=== PATIENT | female | born 1980 | race Caucasian/White ===

== ENCOUNTER 2023-10-30 14:31 | Emergency (ER) | payer OTHER, SELFPAY ==
[2023-10-30 14:38] VITALS: BP 151/90; PULSE 100; RESP 20; TEMP 36.7; O2SAT 98; BMI 45.2
--- NOTE | 2023-10-30 15:04 | CT_ITS ---
The [address] [address] Patient Name: BRIE DUMONT MRN: [id number] date: 1980 Sex: F Assigned Patient Location: ER Current Patient Location: ER Accession/Order Number: [id number] Exam Date: 10/30/2023 15:25 Report Date: 10/30/2023 15:51 At the request of: HOLDEN NOVA Procedure: CT abdomen pelvis wo con CT abdomen and pelvis without contrast CLINICAL: left flank pain r/o stone , history of right oophorectomy and hysterectomy COMPARISON: None. TECHNIQUE: Computed tomography of the abdomen and pelvis was performed without intravenous contrast. Coronal and sagittal reformations were obtained. Dose reduction: mA and/or kV are adjusted by automated exposure control software based on patient size. FINDINGS: Soft tissue structures are suboptimally evaluated without intravenous contrast. Kidneys are normal in size without perinephric stranding or hydronephrosis. There is no renal or ureteral calculus on either side. Bladder is nondistended without bladder stone. Liver size is upper limits of normal at 15 cm craniocaudal in the midclavicular line. Liver morphology is normal with a background of severe fatty infiltration of the liver. Gallbladder surgically absent. Pancreas is normal. Spleen size is normal at 13 cm craniocaudal. Adrenal glands are normal. Small and large bowel loops are normal caliber. Small stool burden in the proximal colon with otherwise: Decompressed. No focal bowel inflammation. Appendix is not seen without findings for appendicitis. Abdominal aorta is normal. Uterus surgically absent. Cluster of cysts or a complex cyst in the left ovary measuring 2.4 x 2.2 cm. Right ovary not definitely seen] and with history of right oophorectomy. There are few shotty rebecca hepatis and portacaval lymph nodes measuring up to 1.1 cm in short axis (image 36 series 3). Otherwise no gross abdominal pelvic lymphadenopathy. Lung bases clear. Heart size within normal limits. Patient is morbidly obese, with nonspecific bronchial skin thickening across patient's pannus. Mild endplate degenerative spurs of the thoracolumbar spine. Tiny fat-containing umbilical hernia. CT/CT abdomen pelvis wo con IMPRESSION: 1. Normal noncontrast CT appearance of the kidneys without urinary calculus. No obstructive or inflammatory changes of the kidneys on either side. 2. Borderline hepatomegaly with diffuse fatty infiltration of the liver and changes of cholecystectomy. 3. Negative for bowel obstruction or focal bowel inflammation with small stool burden. 4. Few shotty upper abdominal lymph nodes, without gross abdominal or pelvic lymphadenopathy. 5. Morbidly obese patient with nonspecific broad skin thickening across patient's pannus that is probably from dependent edema. Cellulitis not excluded. Correlate with physical examination. 6. Hysterectomy and right oophorectomy, with a cluster of cysts versus a complex cyst in the left ovary at 2.4 cm. Additional incidental findings discussed above. Electronically authenticated by: DAMION MORGAN Date: 10/30/2023 15:51
--- NOTE | 2023-10-30 15:05 | ED.GENADUL1 ---
HPI - General Adult General Chief complaint: Abdominal Pain Stated complaint: KIDNEY STONES SYMPOMS PAIN ON LT SIDE Time Seen by Provider: 10/30/23 14:59 Source: patient Mode of arrival: walk-in Limitations: no limitations History of Present Illness HPI narrative: pt is a 43 yr female. c/o Left flank pain. Nausea and vomiting Patient reports at times the pain can be severe, she has a recurrent history of kidney stones but was recently assessed by her urologist last week when symptoms began. Patient reports having a bladder scan in the office with no report of stone. Patient states symptoms then went away but then aggressively returned today. Patient reports that she has always been able to pass her stones, but has had a history of bladder infections. Patient denies any chest pain or shortness of breath, she denies any measurable fever. She Has allergies to Ultram and Toradol. Denies any diarrhea or history of Crohn's or colitis or diverticulitis. Urology group is with the [facility], patient reports no recent CT scans. Onset (ago): hour(s) Location: Reports abdomen Radiation: Reports flank (left) Severity: moderate Quality: Reports stabbing, aching, sharp and constant Pain Consistency: Reports constant (currently) and colicky Relieving factors: Reports none Exacerbating factors: Reports none Associated symptoms: Reports nausea/vomiting Related Data Previous Rx's Medication Instructions Recorded dicyclomine 20 mg tablet 20 mg PO TID abdominal pain 2 days 10/30/23 #6 tabs ondansetron HCl 4 mg tablet 4 mg PO Q6H PRN nausea and 10/30/23 vomiting #12 tabs Allergies Allergy/AdvReac Type Severity Reaction Status Date / Time ketorolac [From Toradol] Allergy Anaphylaxis Verified 10/30/23 14:41 tramadol Allergy Anaphylaxis Verified 10/30/23 14:41 Review of Systems ROS Constitutional Denies: fever or chills Eyes Denies: change in vision Ears, nose, mouth, and throat Denies: throat pain or neck pain Cardiovascular Denies: chest pain or palpitations Respiratory Denies: shortness of breath or cough Gastrointestinal Reports: abdominal pain, nausea and vomiting Genitourinary Denies: painful urination, urinary frequency or urinary urgency Musculoskeletal Denies: back pain, neck pain or extremity pain Integumentary/Breast Denies: rash, itching, redness or skin pain Neurological Denies: headache, numbness in extremities or weakness in extremities Psychiatric Denies: anxiety Allergic/Immunologic Denies: hives PFSH PFSH Social History Smoking status: Former smoker Exam Narrative Exam Narrative: Nurses notes and vital signs reviewed and patient is not hypoxic. General: The patient appears well but uncomfortable holding left flank/ LLQ Skin: Warm, dry, no pallor noted. no zoster rash noted. Head: Normocephalic, atraumatic Neck: Supple, trachea mid-line, no tenderness, no lymphadenopathy Eye: Pupils are equal, round and reactive to light, EOMI Ears, Nose, Mouth, and Throat: TM are clear, normal light reflex, oral mucosa is moist, no posterior oropharynx erythema or hypertrophy, uvula is mid-line Cardiovascular: Regular Rate and Rhythm Respiratory: Patient is in no distress, no accessory muscle use, lungs are clear to auscultation, no wheezing, rales or rhonchi. Chest Wall: no tenderness Back: non-tender, no CVA tenderness Musculoskeletal: normal ROM, no tenderness, no swelling GI: Normal bowel sounds, + tenderness to palpation Left lower quadrant, no masses appreciated. No rebound, guarding, or rigidity noted. Neurological: A&O x4 Psychiatric: Cooperative Constitutional Vital Signs, click to edit/add: Last Vital Signs Temp 98.1 F 10/30/23 14:38 Pulse 100 H 10/30/23 14:38 Resp 20 10/30/23 14:38 BP 151/90 H 10/30/23 14:38 Pulse Ox 98 10/30/23 14:38 O2 Del Method Room Air 10/30/23 14:38 Course Vital Signs Vital signs: Vital Signs Temperature 98.1 F 10/30/23 14:38 Pulse Rate 100 H 10/30/23 14:38 Respiratory Rate 20 10/30/23 14:38 Blood Pressure 151/90 H 10/30/23 14:38 Pulse Oximetry 98 10/30/23 14:38 Oxygen Delivery Method Room Air 10/30/23 14:38 Temperature 98.1 F 10/30/23 14:38 Pulse Rate 100 H 10/30/23 14:38 Respiratory Rate 20 10/30/23 14:38 Blood Pressure 151/90 H 10/30/23 14:38 Pulse Oximetry 98 10/30/23 14:38 Oxygen Delivery Method Room Air 10/30/23 14:38 Medical Decision Making MDM Narrative Medical decision making narrative: Reviewed imaging on file. CT 11/2022, pt verbally reports no CT's at [facility], ( urologist in [facility]). pt seen last week with Neg in office Ultrasound and symptoms went away until there. Review: Reviewed laboratory studies, patient admits to taking Azo with her bladder symptoms after seeing urology, will await urine culture as she denies any urgency frequency or dysuria. Patient denies fever. We discussed her CT scan no evidence of ureterolithiasis or renal calculi, patient received 4 mg IV morphine and Zofran. Patient notes that she still has some discomfort in her left lower quadrant. We discussed Bentyl medication and Zofran for discharge, patient had ovarian cyst noted on CT scan. Patient with anemia, she denies blood per rectum, states she recently got started on iron supplementation for iron deficiency anemia but has not been taking it that long. We discussed the need to discuss her lab findings here with her family doctor to ensure ongoing follow-up. She appears nontoxic. can follow with her OBGYN for ovarian cyst. We discussed additional medication and after reviewing her OARRS Patient has multiple prescriptions from different providers with last being 10/25 from an ER. 2-to 8 tabs percocet at a time. We recommend she follow-up to her family doctor to discuss ongoing treatmentThe patient is to followup with primary care physician in next 2-3 days or to return to the emergency department should any of the signs or symptoms worsen or new symptoms develop. Patient had questions answered. The patient agrees with the following Diagnosis and Treatment plan and the patient will be discharged home.I do not feel pt needs narcotic medication at this time and continue her motrin. Lab Data Lab results reviewed: Yes I reviewed the patient's lab results Labs: Lab Results 10/30/23 10/30/23 10/30/23 Range/Units 14:45 14:56 15:01 WBC 6.5 (4.0-11.0) 10^3/uL RBC 4.38 (4.20-5.40) 10^6/uL Hgb 9.5 L (12.0-16.0) g/dL Hct 31.7 L (36.0-48.0) % MCV 72.4 L (81.0-99.0) fL MCH 21.7 L (26.7-34.0) pg MCHC 30.0 (29.9-35.2) g/dL RDW 17.2 H (11.0-15.0) % Plt Count 312 (150-450) 10^3/uL MPV 8.5 L (9.5-13.5) fL Neut % (Auto) 52.4 (43.0-75.0) % Lymph % (Auto) 36.4 (20.5-60.0) % [place] % (Auto) 8.6 (1.7-12.0) % Eos % (Auto) 1.5 (0.9-7.0) % Baso % (Auto) 0.8 (0.2-2.0) % Neut # (Auto) 3.4 (1.4-6.5) 10^3/uL Lymph # (Auto) 2.4 (1.2-3.8) 10^3/uL [place] # (Auto) 0.6 (0.3-0.8) 10^3/uL Eos # (Auto) 0.1 (0.0-0.7) 10^3/uL Baso # (Auto) 0.1 (0.0-0.1) 10^3/uL Abs Immat Gran (auto) 0.02 (0.00-0.03) 10^3/uL Imm/Tot Granulo (auto) 0.3 (0.0-0.5) % Sodium 139 (136-145) mmol/L Potassium 4.6 (3.5-5.1) mmol/L Chloride 103 (98-107) mmol/L Carbon Dioxide 28.8 (21.0-32.0) mmol/L Anion Gap 11.8 BUN 7.0 (7.0-18.0) mg/dL Creatinine 0.72 (0.55-1.02) mg/dL Est GFR ( Amer) >60 (>=60) Est GFR (Non-Af Amer) >60 (>=60) BUN/Creatinine Ratio 9.7 Glucose 113 H (74-106) mg/dL Calcium 9.0 (8.5-10.1) mg/dL Total Bilirubin 0.6 (0.2-1.0) mg/dL AST 27 (15-37) U/L ALT 37 (14-59) U/L Alkaline Phosphatase 76 (46-116) U/L Troponin I High Sens <4.0 L (4.0-51.3) pg/mL Total Protein 8.1 (6.4-8.2) g/dL Albumin 3.5 (3.4-5.0) g/dL Globulin 4.6 g/dL Albumin/Globulin Ratio 0.8 Lipase 46.0 (16.0-77.0) U/L Urine Color [place] A (YELLOW) Urine Clarity Clear (CLEAR) Urine pH Color interference A (5.0-9.0) Ur Specific [place] 1.010 (1.005-1.025) Urine Protein Color interference A (NEG/TRACE) mg/dL Urine Glucose (UA) Color interference A (NEGATIVE) mg/dL Urine Ketones Color interference A (NEGATIVE) mg/dL Urine Occult Blood Color interference A (NEGATIVE) Urine Nitrite Color interference A (NEGATIVE) Urine Bilirubin Color interference A (NEGATIVE) Urine Urobilinogen Color interference A (0.2-1.0) EU/dL Ur Leukocyte Esterase Color interference A (NEGATIVE) Urine RBC 10-20 A (0-2) #/HPF Urine WBC 5-10 A (NONE SEEN) #/HPF Ur Squamous Epith Cells Moderate A (NONE/RARE) #/LPF Urine Crystals None seen (None Seen) #/HPF Urine Bacteria Small A (NONE SEEN) #/HPF Urine Casts None seen (NONE SEEN) #/LPF Urine Mucus None seen (NONE SEEN) Ur Culture Indicated? Yes Urine HCG, Qual Negative (NEGATIVE) Imaging Data CT scan - abdomen: Attestation: I personally reviewed and interpreted this imaging study as follows: Radiologist's impression: ITS Impressions Abdomen/Pelvis CT 10/30/23 15:04 IMPRESSION: 1. Normal noncontrast CT appearance of the kidneys without urinary calculus. No obstructive or inflammatory changes of the kidneys on either side. 2. Borderline hepatomegaly with diffuse fatty infiltration of the liver and changes of cholecystectomy. 3. Negative for bowel obstruction or focal bowel inflammation with small stool burden. 4. Few shotty upper abdominal lymph nodes, without gross abdominal or pelvic lymphadenopathy. 5. Morbidly obese patient with nonspecific broad skin thickening across patient's pannus that is probably from dependent edema. Cellulitis not excluded. Correlate with physical examination. 6. Hysterectomy and right oophorectomy, with a cluster of cysts versus a complex cyst in the left ovary at 2.4 cm. Additional incidental findings discussed above. Electronically authenticated by: JOAOTOM EDDIE Date: 10/30/2023 15:51 Discharge Plan Discharge Chief Complaint: Abdominal Pain Clinical Impression: Acute abdominal pain in left flank, Ovarian cyst, Abdominal pain, Nausea Patient Disposition: Home, Self-Care Time of Disposition Decision: 16:21 Condition: Good Prescriptions / Home Meds: New ondansetron HCl 4 mg tablet 4 mg PO Q6H PRN (Reason: nausea and vomiting) Qty: 12 0RF dicyclomine 20 mg tablet 20 mg PO TID 2 Days Qty: 6 0RF Instructions: Abdominal Pain (ED) Referrals: Denny Connelly DO [Physician] - As soon as possible Chaitanya Rhodes MD [Physician] - As soon as possible Stand Alone Forms: Portal Instructions
[2023-10-30] MEDS: ONDANSETRON PF 4 MG/2 ML VIAL IV (15:06)
[2023-10-30 15:09] LABS: Clarity Urine CLEAR (CLEAR); Color Urine ORANGE (YELLOW)
[2023-10-30 15:10] LABS: Basophils Absolute Auto 0.1 10^3/uL (0.0-0.1); Basophils Percent Auto 0.8 % (0.2-2.0); Eosinophils Absolute Auto 0.1 10^3/uL (0.0-0.7); Eosinophils Percent Auto 1.5 % (0.9-7.0); Hematocrit 31.7 % (36.0-48.0); Hemoglobin 9.5 g/dL (12.0-16.0); Immature Granulocytes Abs Auto 0.02 10^3/uL (0.00-0.03); Immature Granulocytes Pct Auto 0.3 % (0.0-0.5); Lymphocytes Absolute Auto 2.4 10^3/uL (1.2-3.8); Lymphocytes Percent Auto 36.4 % (20.5-60.0); Mean Corpuscular Hemoglobin 21.7 pg (26.7-34.0); Mean Corpuscular Volume 72.4 fL (81.0-99.0); Mean Platelet Volume 8.5 fL (9.5-13.5); Monocytes Absolute Auto 0.6 10^3/uL (0.3-0.8); Monocytes Percent Auto 8.6 % (1.7-12.0); Neutrophils Absolute Auto 3.4 10^3/uL (1.4-6.5); Neutrophils Percent Auto 52.4 % (43.0-75.0); Platelet Count 312 10^3/uL (150-450); Red Blood Count 4.38 10^6/uL (4.20-5.40); Red Cell Distribution Width 17.2 % (11.0-15.0); White Blood Count 6.5 10^3/uL (4.0-11.0)
[2023-10-30 15:10] LABS: Bilirubin Urine COLOR INTERFERENCE (NEGATIVE); Blood Urine COLOR INTERFERENCE (NEGATIVE); Glucose Urine UA COLOR INTERFERENCE mg/dL (NEGATIVE); HCG Qualitative Urine* NEGATIVE (NEGATIVE); Ketones Urine COLOR INTERFERENCE mg/dL (NEGATIVE); Leukocyte Esterase Urine COLOR INTERFERENCE (NEGATIVE); Nitrite Urine COLOR INTERFERENCE (NEGATIVE); Protein Urine COLOR INTERFERENCE mg/dL (NEG/TRACE); Urine Microscopic Indicated YES; Urobilinogen Urine COLOR INTERFERENCE EU/dL (0.2-1.0); pH Urine COLOR INTERFERENCE (5.0-9.0)
[2023-10-30] MEDS: MORPHINE SULFATE 2 MG/ML SYRINGE 4 MG IV (15:12)
[2023-10-30] MEDS: 0.9 % SODIUM CHLORIDE 1,000 ML 999 ML IV (15:13)
[2023-10-30 15:16] LABS: Bacteria Urine SMALL #/HPF (NONE SEEN); Mucus Urine NONE SEEN (NONE SEEN)
[2023-10-30 15:17] LABS: Cast Seen? NONE SEEN #/LPF (NONE SEEN); Crystals Seen? None Seen #/HPF (None Seen); Squamous Epithelial Cell Urine MODERATE #/LPF (NONE/RARE); Urine Culture Indicated YES
[2023-10-30 15:27] LABS: Alanine Aminotransferase 37 U/L (14-59); Albumin Globulin Ratio 0.8; Albumin Level 3.5 g/dL (3.4-5.0); Alkaline Phosphatase 76 U/L (46-116); Anion Gap 11.8; Aspartate Amino Transferase 27 U/L (15-37); BUN Creatinine Ratio 9.7; Bilirubin Total 0.6 mg/dL (0.2-1.0); Carbon Dioxide 28.8 mmol/L (21.0-32.0); Chloride 103 mmol/L (98-107); Estimated GFR (African America >60 (>=60); Estimated GFR (Non-African Ame >60 (>=60); Globulin 4.6 g/dL; Glucose 113 mg/dL (74-106); Potassium 4.6 mmol/L (3.5-5.1); Sodium 139 mmol/L (136-145); Total Protein 8.1 g/dL (6.4-8.2); Troponin I High Sensitivity <4.0 pg/mL (4.0-51.3)
--- NOTE | 2023-10-30 16:42 | PC.NURSE ---
Pt took out her own iv at this time -- does not appear to be bleeding.
== END 2023-10-30 16:52 | disposition home or self-care (01) ==
PROVIDERS: Personal Emergency Response Attendant; Emergency Provider Emergency Medicine Emergency Medical Services; PCP Nurse Practitioner
DX: R10.9 Unspecified abdominal pain (principal); R11.0 Nausea; N83.202 Unspecified ovarian cyst, left side; Z87.442 Personal history of urinary calculi; Z87.891 Personal history of nicotine dependence
CPT/HCPCS: 36415; 74176; 80053; 81001; 83690; 84484; 84703; 85025; 87086; 96361; 96374; 96375; 99285

== ENCOUNTER 2024-03-12 17:16 | Emergency (ER) | payer OTHER, SELFPAY ==
[2024-03-12 17:20] VITALS: BP 143/76; PULSE 94; TEMP 36.6; O2SAT 99; BMI 45.2
--- NOTE | 2024-03-12 17:44 | CT_ITS ---
[address] [address] Patient Name: BRIE DUMONT MRN: [facility]:[id number] date: 1980 Sex: F Assigned Patient Location: ER Current Patient Location: ER Accession/Order Number: [id number] Exam Date: 03/12/2024 18:10 Report Date: 03/12/2024 19:33 At the request of: ASYA BREAUX Procedure: CT abdomen pelvis wo con EXAM: CT abdomen pelvis wo con. HISTORY: Left flank pain. COMPARISON: CT 10/30/2023. TECHNIQUE: Multiple axial CT images of the abdomen and pelvis were obtained without IV contrast. 2D coronal and sagittal MIP reformations were submitted for review. Dose reduction techniques were achieved by using automated exposure control and/or adjustment of mA and/or kV according to patient size and/or use of iterative reconstruction technique. FINDINGS: LUNG BASES: Visualized lung bases appear clear. No pleural effusion is identified. Decreased density of blood pool relative to the myocardium suggesting anemia. LYMPH NODES: Similar prominent lymph nodes in the portacaval and rebecca hepatis regions. ABDOMINAL AORTA: No aortic aneurysm identified. LIVER: Liver contour appears smooth. Mild decreased density of the liver parenchyma suggests fatty infiltration. BILIARY TREE AND GALLBLADDER: No intrahepatic or extrahepatic bile duct dilatation. Prior cholecystectomy. PANCREAS: Normal in size without masses or ductal dilatation. No peripancreatic inflammatory changes. SPLEEN: Normal in size without focal lesions. ADRENAL GLANDS: Normal bilaterally, without nodules. KIDNEYS/URINARY BLADDER: The kidneys appear symmetric in size. No parenchymal lesions identified. No KUB stones or hydronephrosis identified. The urinary bladder appears unremarkable. GASTROINTESTINAL TRACT: No bowel obstruction is identified. The stomach and duodenum appear unremarkable. Appendix is not seen with certainty. No pericecal inflammation. PERITONEAL CAVITY AND SURFACES: No free fluid. No free intraperitoneal air. REPRODUCTIVE ORGANS: Prior hysterectomy. ABDOMINAL WALL: Small noninflamed fat-containing umbilical hernia. Mild inflammation in the subcutaneous tissues along the pannus with skin thickening. OSSEOUS STRUCTURES: No aggressive appearing osseous lesions. No compression fracture is identified. Mild degenerative disc disease. Mild bilateral hip joint osteoarthritis. Mild to moderate bilateral SI joint osteoarthritis. CT/CT abdomen pelvis wo con IMPRESSION: 1. No KUB stones or hydronephrosis. 2. Fatty infiltration of the liver. 3. Mild inflammation along the pannus may be related to cellulitis. Recommend clinical correlation. 4. Prior cholecystectomy and hysterectomy. Electronically authenticated by: HOLDEN JAMIL Date: 03/12/2024 19:33
--- NOTE | 2024-03-12 17:56 | ED.GENADUL1 ---
HPI HPI - General Adult General Chief complaint: Abdominal Pain Stated complaint: BLOOD IN URINE, NAUSEA.VOMITING, FEVER Time Seen by Provider: 03/12/24 17:17 Source: patient Mode of arrival: walk-in Limitations: no limitations History of Present Illness HPI narrative: 43-year-old female to the emergency department with chief complaint of left-sided flank pain. Symptoms began overnight. Has a history of kidney stones with similar symptoms. Reports nausea without vomiting. Denies any fever, sweats, chills. She does have hematuria. Related Data Previous Rx's ?Medication ?Instructions ?Recorded dicyclomine 20 mg tablet 20 mg PO TID abdominal pain 2 days 10/30/23 #6 tabs ondansetron HCl 4 mg tablet 4 mg PO Q6H PRN nausea and 10/30/23 vomiting #12 tabs Allergies Allergy/AdvReac Type Severity Reaction Status Date / Time ketorolac [From Toradol] Allergy Anaphylaxis Verified 03/12/24 17:20 tramadol Allergy Anaphylaxis Verified 03/12/24 17:20 Opioid HPI Opioid Management Most Recent Opioid Data: Last Pain Scale 8 03/12/24 18:45 Last MAR Pain Assessment 03/12/24 18:00 Review of Systems ROS Status of ROS 10 or more systems reviewed and unremarkable except as noted in history and below PFSH PFS Social History Smoking status: Former smoker Exam Narrative Exam Narrative: VITALS: I have reviewed the triage vital signs. GENERAL: Well developed, well appearing adult in no acute distress. NEURO: Alert and oriented. Moves all extremities. Face is symmetric and expressive. EYES: PERRL. No scleral icterus or conjunctival injection. No discharge. HENT: Normocephalic, atraumatic. Hearing is grossly intact. Nares grossly patent and without discharge. Mucous membranes moist. NECK: No JVD. Patient moves neck without restriction. CARDIO: Rhythm regular. Normal rate. No murmur, rub, or gallop. Pulses equal bilaterally in the upper and lower extremity. No lower extremity edema. PULM: Lungs clear to auscultation in all miranda. No wheezes, rales, or rhonchi. No conversational dyspnea. No splinting, stridor, or accessory muscle use. GI/: Abdomen is soft and non-tender. Normoactive bowel sounds. EXTREMITIES: Symmetric muscle bulk. No joint swelling. No clubbing, cyanosis, or deformity. SKIN: Warm and dry. Normal turgor. No rash or lesions appreciated. PSYCH: Mood, affect, and interaction is appropriate to the setting. Constitutional Vital Signs, click to edit/add: Last Vital Signs Temp 97.8 F 03/12/24 17:20 Pulse 91 H 03/12/24 18:44 Resp 16 03/12/24 18:44 BP 162/73 H 03/12/24 18:44 Pulse Ox 98 03/12/24 18:44 O2 Del Method Room Air 03/12/24 18:44 Course Vital Signs Vital signs: Vital Signs Temperature 97.8 F 03/12/24 17:20 Pulse Rate 94 H 03/12/24 17:20 Respiratory Rate 16 03/12/24 17:20 Blood Pressure 143/76 H 03/12/24 17:20 Pulse Oximetry 99 03/12/24 17:20 Oxygen Delivery Method Room Air 03/12/24 17:20 Temperature 97.8 F 03/12/24 17:20 Pulse Rate 91 H 03/12/24 18:44 Respiratory Rate 16 03/12/24 18:44 Blood Pressure 162/73 H 03/12/24 18:44 Pulse Oximetry 98 03/12/24 18:44 Oxygen Delivery Method Room Air 03/12/24 18:44 Medical Decision Making MDM Narrative Medical decision making narrative: 43-year-old female to the emergency department chief complaint of left flank pain. Vital stable, the patient is afebrile. Workup is initiated, suspect kidney stone. CT scan and labs are ordered. Urinalysis ordered. Morphine and Zofran for symptoms. Care was signed out to Dr. [place] with results of CT and disposition pending. Medical Records Medical records reviewed: Yes I reviewed the patient's medical records Lab Data Lab results reviewed: Yes I reviewed the patient's lab results Labs: Lab Results 03/12/24 03/12/24 Range/Units 17:35 17:38 WBC 5.2 (4.0-11.0) 10^3/uL RBC 4.13 L (4.20-5.40) 10^6/uL Hgb 8.7 L (12.0-16.0) g/dL Hct 29.8 L (36.0-48.0) % MCV 72.2 L (81.0-99.0) fL MCH 21.1 L (26.7-34.0) pg MCHC 29.2 L (29.9-35.2) g/dL RDW 17.4 H (11.0-15.0) % Plt Count 287 (150-450) 10^3/uL MPV 8.4 L (9.5-13.5) fL Neut % (Auto) 54.7 (43.0-75.0) % Lymph % (Auto) 35.5 (20.5-60.0) % [place] % (Auto) 7.3 (1.7-12.0) % Eos % (Auto) 1.5 (0.9-7.0) % Baso % (Auto) 0.6 (0.2-2.0) % Neut # (Auto) 2.8 (1.4-6.5) 10^3/uL Lymph # (Auto) 1.8 (1.2-3.8) 10^3/uL [place] # (Auto) 0.4 (0.3-0.8) 10^3/uL Eos # (Auto) 0.1 (0.0-0.7) 10^3/uL Baso # (Auto) 0.0 (0.0-0.1) 10^3/uL Abs Immat Gran (auto) 0.02 (0.00-0.03) 10^3/uL Imm/Tot Granulo (auto) 0.4 (0.0-0.5) % Urine Color Lt. yellow (YELLOW) Urine Clarity Clear (CLEAR) Urine pH 7.0 (5.0-9.0) Ur Specific [place] 1.010 (1.005-1.025) Urine Protein Negative (NEG/TRACE) mg/dL Urine Glucose (UA) Negative (NEGATIVE) mg/dL Urine Ketones Negative (NEGATIVE) mg/dL Urine Occult Blood Large A (NEGATIVE) Urine Nitrite Negative (NEGATIVE) Urine Bilirubin Negative (NEGATIVE) Urine Urobilinogen 0.2 (0.2-1.0) EU/dL Ur Leukocyte Esterase Negative (NEGATIVE) Urine RBC 75-100 A (0-2) #/HPF Urine WBC 0-2 A (NONE SEEN) #/HPF Ur Squamous Epith Cells Few A (NONE/RARE) #/LPF Urine Crystals None seen (None Seen) #/HPF Urine Bacteria Trace A (NONE SEEN) #/HPF Urine Casts None seen (NONE SEEN) #/LPF Urine Mucus None seen (NONE SEEN) Ur Culture Indicated? No Discharge Plan Discharge Chief Complaint: Abdominal Pain Clinical Impression: Acute flank pain Patient Disposition: Still a Patient Prescriptions / Home Meds: No Action ondansetron HCl 4 mg tablet 4 mg PO Q6H PRN (Reason: nausea and vomiting) Qty: 12 0RF dicyclomine 20 mg tablet 20 mg PO TID 2 Days Qty: 6 0RF Print Language: Slovak Referrals: Julita Saunders NP [Primary Care Provider] - 1 week
[2024-03-12] MEDS: MORPHINE SULFATE 4 MG/ML VIAL IV (18:00)
[2024-03-12] MEDS: ONDANSETRON PF 4 MG/2 ML VIAL IV (18:00)
[2024-03-12 18:09] LABS: Basophils Percent Auto 0.6 % (0.2-2.0); Eosinophils Absolute Auto 0.1 10^3/uL (0.0-0.7); Eosinophils Percent Auto 1.5 % (0.9-7.0); Hematocrit 29.8 % (36.0-48.0); Hemoglobin 8.7 g/dL (12.0-16.0); Immature Granulocytes Abs Auto 0.02 10^3/uL (0.00-0.03); Immature Granulocytes Pct Auto 0.4 % (0.0-0.5); Lymphocytes Absolute Auto 1.8 10^3/uL (1.2-3.8); Lymphocytes Percent Auto 35.5 % (20.5-60.0); Mean Corpuscular HGB Conc 29.2 g/dL (29.9-35.2); Mean Corpuscular Hemoglobin 21.1 pg (26.7-34.0); Mean Corpuscular Volume 72.2 fL (81.0-99.0); Mean Platelet Volume 8.4 fL (9.5-13.5); Monocytes Absolute Auto 0.4 10^3/uL (0.3-0.8); Monocytes Percent Auto 7.3 % (1.7-12.0); Neutrophils Absolute Auto 2.8 10^3/uL (1.4-6.5); Neutrophils Percent Auto 54.7 % (43.0-75.0); Platelet Count 287 10^3/uL (150-450); Red Blood Count 4.13 10^6/uL (4.20-5.40); Red Cell Distribution Width 17.4 % (11.0-15.0); White Blood Count 5.2 10^3/uL (4.0-11.0)
[2024-03-12 18:11] LABS: Bilirubin Urine NEGATIVE (NEGATIVE); Blood Urine LARGE (NEGATIVE); Clarity Urine CLEAR (CLEAR); Color Urine LT. YELLOW (YELLOW); Glucose Urine UA NEGATIVE (NEGATIVE); Ketones Urine NEGATIVE (NEGATIVE); Leukocyte Esterase Urine NEGATIVE (NEGATIVE); Nitrite Urine NEGATIVE (NEGATIVE); Protein Urine NEGATIVE (NEG/TRACE); Urobilinogen Urine 0.2 EU/dL (0.2-1.0)
[2024-03-12 18:30] LABS: Urine Microscopic Indicated YES; WBC Urine 0-2 #/HPF (NONE SEEN)
[2024-03-12 18:31] LABS: RBC Urine 75-100 #/HPF (0-2)
[2024-03-12 18:32] LABS: Bacteria Urine TRACE #/HPF (NONE SEEN); Cast Seen? NONE SEEN #/LPF (NONE SEEN); Crystals Seen? None Seen #/HPF (None Seen); Mucus Urine NONE SEEN (NONE SEEN); Squamous Epithelial Cell Urine FEW #/LPF (NONE/RARE)
[2024-03-12 18:33] LABS: Urine Culture Indicated NO
[2024-03-12 18:43] LABS: Anion Gap 11.9; BUN Creatinine Ratio 7.7; Calcium 8.9 mg/dL (8.5-10.1); Carbon Dioxide 29.2 mmol/L (21.0-32.0); Chloride 103 mmol/L (98-107); Estimated GFR (African America >60 (>=60); Estimated GFR (Non-African Ame >60 (>=60); Glucose 119 mg/dL (74-106); Potassium 4.1 mmol/L (3.5-5.1); Sodium 140 mmol/L (136-145)
[2024-03-12 18:44] VITALS: BP 162/73; PULSE 91; O2SAT 98
--- NOTE | 2024-03-12 19:44 | ED.ABDPAIN1 ---
HPI - Abdominal Pain General Chief Complaint: Abdominal Pain Stated Complaint: BLOOD IN URINE, NAUSEA.VOMITING, FEVER Time Seen by Provider: 03/12/24 17:17 Source: patient Mode of arrival: walk-in Limitations: no limitations History of Present Illness HPI narrative: This 43-year-old female with a history of kidney stones was signed out to me at shift change pending CT scan of the abdomen pelvis. Patient was seen and examined. She presents for evaluation of left flank pain with nausea and vomiting. She states the pain started last night. She has a history of kidney stones and follows up with a urologist at [facility]. She states she went to the bathroom and urinated claudia blood. She denies any dysuria with it. She was given morphine and Zofran in emergency department but denied she had any relief from that. I reviewed her labs. She has a normal white count. Her hemoglobin is mildly low at 8.7, electrolytes are normal. Urine is negative for infection but positive for 75-100 red blood cells per high-power field. CT scan of the abdomen pelvis does not show any kidney stone hydronephrosis or other abnormal findings. It did note there is possible induration of her abdominal wall but she denies this is the case. She will be remedicated with a dose of 0.5 mg of IV Dilaudid and given oral Keflex. She will be discharged home with 2 Percocet to use as needed overnight and a prescription for Keflex, Zofran and [place]. She was encouraged to drink plenty of fluids, return the emergency department as needed for ongoing or worsening symptoms and follow-up with her urologist as needed. Related Data Previous Rx's ?Medication ?Instructions ?Recorded dicyclomine 20 mg tablet 20 mg PO TID abdominal pain 2 days 10/30/23 #6 tabs ondansetron HCl 4 mg tablet 4 mg PO Q6H PRN nausea and 10/30/23 vomiting #12 tabs Allergies Allergy/AdvReac Type Severity Reaction Status Date / Time ketorolac [From Toradol] Allergy Anaphylaxis Verified 03/12/24 17:20 tramadol Allergy Anaphylaxis Verified 03/12/24 17:20 PFSH PFSH Social History Smoking status: Former smoker Exam Constitutional Vital Signs, click to edit/add: Last Vital Signs Temp 97.8 F 03/12/24 17:20 Pulse 91 H 03/12/24 18:44 Resp 16 03/12/24 18:44 BP 162/73 H 03/12/24 18:44 Pulse Ox 98 03/12/24 18:44 O2 Del Method Room Air 03/12/24 18:44 Course Vital Signs Vital signs: Vital Signs Temperature 97.8 F 03/12/24 17:20 Pulse Rate 94 H 03/12/24 17:20 Respiratory Rate 16 03/12/24 17:20 Blood Pressure 143/76 H 03/12/24 17:20 Pulse Oximetry 99 03/12/24 17:20 Oxygen Delivery Method Room Air 03/12/24 17:20 Temperature 97.8 F 03/12/24 17:20 Pulse Rate 91 H 03/12/24 18:44 Respiratory Rate 16 03/12/24 18:44 Blood Pressure 162/73 H 03/12/24 18:44 Pulse Oximetry 98 03/12/24 18:44 Oxygen Delivery Method Room Air 03/12/24 18:44 MDM - Abdominal Pain Lab Data Labs: Lab Results 03/12/24 03/12/24 Range/Units 17:35 17:38 WBC 5.2 (4.0-11.0) 10^3/uL RBC 4.13 L (4.20-5.40) 10^6/uL Hgb 8.7 L (12.0-16.0) g/dL Hct 29.8 L (36.0-48.0) % MCV 72.2 L (81.0-99.0) fL MCH 21.1 L (26.7-34.0) pg MCHC 29.2 L (29.9-35.2) g/dL RDW 17.4 H (11.0-15.0) % Plt Count 287 (150-450) 10^3/uL MPV 8.4 L (9.5-13.5) fL Neut % (Auto) 54.7 (43.0-75.0) % Lymph % (Auto) 35.5 (20.5-60.0) % [place] % (Auto) 7.3 (1.7-12.0) % Eos % (Auto) 1.5 (0.9-7.0) % Baso % (Auto) 0.6 (0.2-2.0) % Neut # (Auto) 2.8 (1.4-6.5) 10^3/uL Lymph # (Auto) 1.8 (1.2-3.8) 10^3/uL [place] # (Auto) 0.4 (0.3-0.8) 10^3/uL Eos # (Auto) 0.1 (0.0-0.7) 10^3/uL Baso # (Auto) 0.0 (0.0-0.1) 10^3/uL Abs Immat Gran (auto) 0.02 (0.00-0.03) 10^3/uL Imm/Tot Granulo (auto) 0.4 (0.0-0.5) % Sodium 140 (136-145) mmol/L Potassium 4.1 (3.5-5.1) mmol/L Chloride 103 (98-107) mmol/L Carbon Dioxide 29.2 (21.0-32.0) mmol/L Anion Gap 11.9 BUN 6.0 L (7.0-18.0) mg/dL Creatinine 0.78 (0.55-1.02) mg/dL Est GFR ( Amer) >60 (>=60) Est GFR (Non-Af Amer) >60 (>=60) BUN/Creatinine Ratio 7.7 Glucose 119 H (74-106) mg/dL Calcium 8.9 (8.5-10.1) mg/dL Urine Color Lt. yellow (YELLOW) Urine Clarity Clear (CLEAR) Urine pH 7.0 (5.0-9.0) Ur Specific [place] 1.010 (1.005-1.025) Urine Protein Negative (NEG/TRACE) mg/dL Urine Glucose (UA) Negative (NEGATIVE) mg/dL Urine Ketones Negative (NEGATIVE) mg/dL Urine Occult Blood Large A (NEGATIVE) Urine Nitrite Negative (NEGATIVE) Urine Bilirubin Negative (NEGATIVE) Urine Urobilinogen 0.2 (0.2-1.0) EU/dL Ur Leukocyte Esterase Negative (NEGATIVE) Urine RBC 75-100 A (0-2) #/HPF Urine WBC 0-2 A (NONE SEEN) #/HPF Ur Squamous Epith Cells Few A (NONE/RARE) #/LPF Urine Crystals None seen (None Seen) #/HPF Urine Bacteria Trace A (NONE SEEN) #/HPF Urine Casts None seen (NONE SEEN) #/LPF Urine Mucus None seen (NONE SEEN) Ur Culture Indicated? No Discharge Plan Discharge Stand Alone Forms: Portal Instructions Chief Complaint: Abdominal Pain Clinical Impression: Acute flank pain, Hematuria Patient Disposition: Home, Self-Care Time of Disposition Decision: 19:43 Condition: Good Prescriptions / Home Meds: No Action ondansetron HCl 4 mg tablet 4 mg PO Q6H PRN (Reason: nausea and vomiting) Qty: 12 0RF dicyclomine 20 mg tablet 20 mg PO TID 2 Days Qty: 6 0RF Print Language: Montenegrin Instructions: Kidney Stones (ED) Referrals: Julita Saunders COPY HOLDER [Primary Care Provider] - 1 week
[2024-03-12] MEDS: ONDANSETRON 4 MG RAPDIS TABLET SL (19:54)
[2024-03-12] MEDS: CEPHALEXIN 500 MG CAPSULE PO (19:55)
[2024-03-12] MEDS: HYDROMORPHONE HCL 0.5 MG/0.5 ML SYRINGE IV (19:55)
[2024-03-12] MEDS: OXYCODONE HCL/ACETAMINOPHEN 5MG/325MG 2 TAB PO (19:57)
[2024-03-12 20:05] VITALS: BP 145/69; PULSE 96; O2SAT 99
--- NOTE | 2024-03-13 14:01 | PC.NURSE ---
03/13/24 [facility] in [place] called concerned about pt filling narcotics at multiple locations, spoke with MARLO De Santiago here when pt was here. ok to cancel prescription at this time, updated pharmacist as ordered by PA. Mishel Cruz RN
== END 2024-03-12 20:06 | disposition home or self-care (01) ==
PROVIDERS: Student in an Organized Health Care Education/Training Program; Emergency Provider Emergency Medicine; PCP Nurse Practitioner
DX: R10.9 Unspecified abdominal pain (principal); Z87.442 Personal history of urinary calculi; Z87.891 Personal history of nicotine dependence
CPT/HCPCS: 36415; 74176; 80048; 81001; 84703; 85025; 96374; 96375; 99285; J1170; J2270; J2405; Q0162

== ENCOUNTER 2024-04-08 13:06 | Emergency (ER) | payer OTHER, SELFPAY ==
[2024-04-08 13:16] VITALS: BP 155/86; PULSE 97; TEMP 37.2; O2SAT 99; BMI 45.2
--- NOTE | 2024-04-08 13:40 | CT_ITS ---
[place] [id number] Patient Name: BRIE DUMONT MRN: [id number] date: 1980 Sex: F Assigned Patient Location: ER Current Patient Location: ER Accession/Order Number: [id number] Exam Date: 04/08/2024 14:35 Report Date: 04/08/2024 15:43 At the request of: POONAM MORRISON Procedure: CT abdomen pelvis wo con EXAMINATION: CT abdomen pelvis wo con, 04/08/2024 2:35 PM EDT HISTORY: left flank pain, r/o stone COMPARISON: 03/12/2024 TECHNIQUE: CT scan of the abdomen and pelvis was performed without IV contrast. CT dose reduction technique was used, including Automated Exposure Control. FINDINGS: LOWER CHEST: The visualized lungs are clear. LIVER: There is hepatomegaly and diffuse hepatic steatosis. GALLBLADDER AND BILIARY SYSTEM: Status post cholecystectomy. No intra or extrahepatic biliary ductal dilatation. SPLEEN: The spleen is enlarged measuring 13.0 cm in craniocaudal dimension. PANCREAS: Unremarkable. ADRENAL GLANDS: Unremarkable. KIDNEYS AND URETERS: No nephrolithiasis or hydronephrosis. No ureteral calculus. BLADDER: Under distended. GASTROINTESTINAL TRACT: No evidence of bowel obstruction or colitis. The appendix is not clearly identified. VASCULATURE: The abdominal aorta is normal in caliber. RETROPERITONEUM: No lymphadenopathy. PERITONEUM/MESENTERY: No abdominal ascites. No free air. PELVIS: No pelvic ascites or lymphadenopathy. BODY WALL: Small fat-containing umbilical hernia. BONES: Degenerative changes of the sacroiliac joints bilaterally. CT/CT abdomen pelvis wo con IMPRESSION: 1. No nephrolithiasis or hydronephrosis. 2. Hepatomegaly and diffuse hepatic steatosis. 3. Splenomegaly. Electronically authenticated by: MONTSE PEREZ Date: 04/08/2024 15:43
--- NOTE | 2024-04-08 13:40 | ED.FEMALEGU1 ---
HPI - Female Genitourinary General Chief complaint: Urogenital-Female Stated complaint: PEEING BLOOD Time Seen by Provider: 04/08/24 13:21 Source: patient Mode of arrival: walk-in Limitations: no limitations History of Present Illness HPI Narrative: 43-year-old female presents to the emergency department for left flank pain and hematuria. She saw her urologist last week and she was told she was passing some punctate stones. She was feeling better until yesterday when she started having some more pain and was urinating blood. The pain is only on the left side and her back. No right-sided pain. She has had a hysterectomy. Related Data Home Medications ?Medication ?Instructions ?Recorded ?Confirmed ciprofloxacin HCl 500 mg tablet 500 mg PO Q12H 04/08/24 04/08/24 lamotrigine 100 mg tablet 100 mg PO QDAY 04/08/24 04/08/24 lorazepam 1 mg tablet 1 mg PO Q8H 04/08/24 04/08/24 metoprolol succinate 50 mg 50 mg PO Q12H 04/08/24 04/08/24 tablet,extended release 24 hr omeprazole 40 mg capsule,delayed 40 mg PO .qhs 04/08/24 04/08/24 release oxycodone-acetaminophen 5 mg-325 1 tab PO Q6H PRN pain 04/08/24 04/08/24 mg tablet Previous Rx's ?Medication ?Instructions ?Recorded dicyclomine 20 mg tablet 20 mg PO TID abdominal pain 2 days 10/30/23 #6 tabs ondansetron HCl 4 mg tablet 4 mg PO Q6H PRN nausea and 10/30/23 vomiting #12 tabs Allergies Allergy/AdvReac Type Severity Reaction Status Date / Time ketorolac [From Toradol] Allergy Anaphylaxis Verified 04/08/24 13:16 tramadol Allergy Anaphylaxis Verified 04/08/24 13:16 Review of Systems ROS Narrative A ten point review of systems is negative except as noted above. PFSH PFSH Social History Smoking status: Former smoker Exam Narrative Exam Narrative: Nurses note and vital signs reviewed and patient is not hypoxic. General: The patient appears uncomfortable and is sitting upright on the cart. Skin: Warm, dry, no pallor noted. There is no rash noted. Head: Normocephalic, atraumatic Eye: Normal conjunctiva, no drainage Ears, Nose, Mouth, and Throat: oral mucosa is moist. Nares patent. Cardiovascular: Regular Rate and Rhythm Respiratory: Patient is in no distress, no accessory muscle use, lungs are clear to auscultation, no wheezing, rales or rhonchi Back: non-tender, no bruise or rash on her back GI: Soft and nontender Musculoskeletal: The patient has no evidence of calf tenderness, no pitting edema, symmetrical pulses noted bilaterally Neurological: A&O, normal speech Psychiatric: Cooperative Constitutional Vital Signs, click to edit/add: Last Vital Signs Temp 98.9 F 04/08/24 13:16 Pulse 97 H 04/08/24 13:16 Resp 16 04/08/24 13:16 BP 155/86 H 04/08/24 13:16 Pulse Ox 99 04/08/24 13:16 O2 Del Method Room Air 04/08/24 13:16 Course Vital Signs Vital signs: Vital Signs Temperature 98.9 F 04/08/24 13:16 Pulse Rate 97 H 04/08/24 13:16 Respiratory Rate 16 04/08/24 13:16 Blood Pressure 155/86 H 04/08/24 13:16 Pulse Oximetry 99 04/08/24 13:16 Oxygen Delivery Method Room Air 04/08/24 13:16 Temperature 98.9 F 04/08/24 13:16 Pulse Rate 97 H 04/08/24 13:16 Respiratory Rate 16 04/08/24 13:16 Blood Pressure 155/86 H 04/08/24 13:16 Pulse Oximetry 99 04/08/24 13:16 Oxygen Delivery Method Room Air 04/08/24 13:16 MDM - Female Genitourinary MDM Narrative Medical decision making narrative: CT is negative, no evidence of stones. She does have hematuria and symptoms consistent with renal colic. She has oxycodone at home and she was given morphine here and she will follow-up with her urologist if symptoms do not resolve. Treatment diagnosis and follow-up were discussed with the patient. Differential Diagnosis Differential diagnosis: Likely urinary tract infection and other (Kidney stone, renal colic) Lab Data Attestation: I reviewed the patient's lab results. Labs: Lab Results 04/08/24 04/08/24 Range/Units 13:35 14:24 WBC 5.7 (4.0-11.0) 10^3/uL RBC 4.18 L (4.20-5.40) 10^6/uL Hgb 8.6 L (12.0-16.0) g/dL Hct 29.6 L (36.0-48.0) % MCV 70.8 L (81.0-99.0) fL MCH 20.6 L (26.7-34.0) pg MCHC 29.1 L (29.9-35.2) g/dL RDW 17.2 H (11.0-15.0) % Plt Count 271 (150-450) 10^3/uL MPV 8.6 L (9.5-13.5) fL Neut % (Auto) 58.1 (43.0-75.0) % Lymph % (Auto) 31.6 (20.5-60.0) % [place] % (Auto) 7.5 (1.7-12.0) % Eos % (Auto) 1.4 (0.9-7.0) % Baso % (Auto) 0.9 (0.2-2.0) % Neut # (Auto) 3.3 (1.4-6.5) 10^3/uL Lymph # (Auto) 1.8 (1.2-3.8) 10^3/uL [place] # (Auto) 0.4 (0.3-0.8) 10^3/uL Eos # (Auto) 0.1 (0.0-0.7) 10^3/uL Baso # (Auto) 0.1 (0.0-0.1) 10^3/uL Abs Immat Gran (auto) 0.03 (0.00-0.03) 10^3/uL Imm/Tot Granulo (auto) 0.5 (0.0-0.5) % Sodium 139 (136-145) mmol/L Potassium 4.3 (3.5-5.1) mmol/L Chloride 102 (98-107) mmol/L Carbon Dioxide 27.1 (21.0-32.0) mmol/L Anion Gap 14.2 BUN 7.0 (7.0-18.0) mg/dL Creatinine 0.76 (0.55-1.02) mg/dL Est GFR ( Amer) >60 (>=60) Est GFR (Non-Af Amer) >60 (>=60) BUN/Creatinine Ratio 9.2 Glucose 107 H (74-106) mg/dL Calcium 9.0 (8.5-10.1) mg/dL Urine Color Red A (YELLOW) Urine Clarity Sl cloudy (CLEAR) Urine pH 6.0 (5.0-9.0) Ur Specific [place] 1.015 (1.005-1.025) Urine Protein Trace (NEG/TRACE) mg/dL Urine Glucose (UA) Negative (NEGATIVE) mg/dL Urine Ketones Negative (NEGATIVE) mg/dL Urine Occult Blood Large A (NEGATIVE) Urine Nitrite Negative (NEGATIVE) Urine Bilirubin Negative (NEGATIVE) Urine Urobilinogen 0.2 (0.2-1.0) EU/dL Ur Leukocyte Esterase Negative (NEGATIVE) Urine RBC >100 A (0-2) #/HPF Urine WBC 0-2 A (NONE SEEN) #/HPF Ur Squamous Epith Cells Few A (NONE/RARE) #/LPF Urine Crystals None seen (None Seen) #/HPF Urine Bacteria Trace A (NONE SEEN) #/HPF Urine Casts None seen (NONE SEEN) #/LPF Urine Mucus None seen (NONE SEEN) Imaging Data CT scan - abdomen: Radiologist's impression: ITS Impressions Abdomen/Pelvis CT 04/08/24 13:40 IMPRESSION: 1. No nephrolithiasis or hydronephrosis. 2. Hepatomegaly and diffuse hepatic steatosis. 3. Splenomegaly. Electronically authenticated by: MONTSE PEREZ Date: 04/08/2024 15:43 Discharge Plan Discharge Stand Alone Forms: Portal Instructions Chief Complaint: Urogenital-Female Clinical Impression: Renal colic, Hematuria Patient Disposition: Home, Self-Care Time of Disposition Decision: 16:01 Condition: Good Mode of Transportation: Private Vehicle Prescriptions / Home Meds: No Action ciprofloxacin HCl 500 mg tablet 500 mg PO Q12H lamotrigine 100 mg tablet 100 mg PO QDAY lorazepam 1 mg tablet 1 mg PO Q8H metoprolol succinate 50 mg tablet extended release 24 hr 50 mg PO Q12H omeprazole 40 mg capsule,delayed release(DR/EC) 40 mg PO .qhs oxycodone-acetaminophen 5-325 mg tablet 1 tab PO Q6H PRN (Reason: pain) ondansetron HCl 4 mg tablet 4 mg PO Q6H PRN (Reason: nausea and vomiting) Qty: 12 0RF dicyclomine 20 mg tablet 20 mg PO TID 2 Days Qty: 6 0RF Print Language: Syriac Instructions: Renal Colic (ED), Hematuria (ED) Referrals: Julita Saunders ORAL HEALTH THERAPIST [Primary Care Provider] - 1 week
[2024-04-08 13:50] LABS: Bilirubin Urine NEGATIVE (NEGATIVE); Blood Urine LARGE (NEGATIVE); Clarity Urine SL CLOUDY (CLEAR); Color Urine RED (YELLOW); Glucose Urine UA NEGATIVE (NEGATIVE); Ketones Urine NEGATIVE (NEGATIVE); Leukocyte Esterase Urine NEGATIVE (NEGATIVE); Nitrite Urine NEGATIVE (NEGATIVE); Protein Urine TRACE mg/dL (NEG/TRACE); Specific Gravity Urine 1.015 (1.005-1.025); Urobilinogen Urine 0.2 EU/dL (0.2-1.0)
[2024-04-08 13:59] LABS: Bacteria Urine TRACE #/HPF (NONE SEEN); Cast Seen? NONE SEEN #/LPF (NONE SEEN); Crystals Seen? None Seen #/HPF (None Seen); Mucus Urine NONE SEEN (NONE SEEN); RBC Urine >100 #/HPF (0-2); Squamous Epithelial Cell Urine FEW #/LPF (NONE/RARE); WBC Urine 0-2 #/HPF (NONE SEEN)
[2024-04-08 14:36] LABS: Basophils Absolute Auto 0.1 10^3/uL (0.0-0.1); Basophils Percent Auto 0.9 % (0.2-2.0); Eosinophils Absolute Auto 0.1 10^3/uL (0.0-0.7); Eosinophils Percent Auto 1.4 % (0.9-7.0); Hematocrit 29.6 % (36.0-48.0); Hemoglobin 8.6 g/dL (12.0-16.0); Immature Granulocytes Abs Auto 0.03 10^3/uL (0.00-0.03); Immature Granulocytes Pct Auto 0.5 % (0.0-0.5); Lymphocytes Absolute Auto 1.8 10^3/uL (1.2-3.8); Lymphocytes Percent Auto 31.6 % (20.5-60.0); Mean Corpuscular HGB Conc 29.1 g/dL (29.9-35.2); Mean Corpuscular Hemoglobin 20.6 pg (26.7-34.0); Mean Corpuscular Volume 70.8 fL (81.0-99.0); Mean Platelet Volume 8.6 fL (9.5-13.5); Monocytes Absolute Auto 0.4 10^3/uL (0.3-0.8); Monocytes Percent Auto 7.5 % (1.7-12.0); Neutrophils Absolute Auto 3.3 10^3/uL (1.4-6.5); Neutrophils Percent Auto 58.1 % (43.0-75.0); Platelet Count 271 10^3/uL (150-450); Red Blood Count 4.18 10^6/uL (4.20-5.40); Red Cell Distribution Width 17.2 % (11.0-15.0); White Blood Count 5.7 10^3/uL (4.0-11.0)
[2024-04-08 14:43] LABS: Anion Gap 14.2; BUN Creatinine Ratio 9.2; Carbon Dioxide 27.1 mmol/L (21.0-32.0); Chloride 102 mmol/L (98-107); Estimated GFR (African America >60 (>=60); Estimated GFR (Non-African Ame >60 (>=60); Glucose 107 mg/dL (74-106); Potassium 4.3 mmol/L (3.5-5.1); Sodium 139 mmol/L (136-145)
[2024-04-08] MEDS: MORPHINE SULFATE 4 MG/ML VIAL IV ×2 (14:44→16:12)
[2024-04-08] MEDS: ONDANSETRON PF 4 MG/2 ML VIAL IV (14:44)
[2024-04-08 16:23] VITALS: BP 141/67; PULSE 94; O2SAT 97
== END 2024-04-08 16:45 | disposition home or self-care (01) ==
PROVIDERS: Emergency Provider Emergency Medicine; PCP Nurse Practitioner
DX: N23 Unspecified renal colic (principal); R31.9 Hematuria, unspecified; Z87.891 Personal history of nicotine dependence
CPT/HCPCS: 36415; 74176; 80048; 81001; 85025; 96374; 96375; 96376; 99285; J2270; J2405

== ENCOUNTER 2024-05-10 16:59 | Emergency (ER) | payer OTHER, SELFPAY ==
[2024-05-10 17:01] VITALS: BP 183/91; PULSE 106; TEMP 36.8; O2SAT 98; BMI 45.2
--- NOTE | 2024-05-10 17:17 | CT_ITS ---
The [address] [address] Patient Name: BRIE DUMONT MRN: [id number] date: 1980 Sex: F Assigned Patient Location: ER Current Patient Location: ER Accession/Order Number: [id number] Exam Date: 05/10/2024 17:23 Report Date: 05/10/2024 17:54 At the request of: POONAM MORRISON Procedure: CT abdomen pelvis wo con CT ABDOMEN/PELVIS WITHOUT IV CONTRAST. INDICATION: Right flank pain, rule out stone COMPARISON: 04/08/2024. TECHNIQUE: Contiguous axial images were obtained from the lung bases to the pelvic floor without intravenous or oral contrast. Coronal and sagittal reformations are provided. FINDINGS: LOWER LUNGS: Clear. LIVER/BILIARY TREE: No discrete lesion. No intrahepatic ductal dilatation. Redemonstrated hepatomegaly. The liver measures 23 cm in craniocaudal dimension. GALLBLADDER: Status post cholecystectomy.. CBD: Normal CBD. SPLEEN: Normal in size. PANCREAS: No appreciable peripancreatic fluid. No pancreatic ductal dilatation. No discrete lesion. ADRENALS: Normal. KIDNEYS: No hydronephrosis. No radiopaque calculus. STOMACH AND BOWEL: Stomach is unremarkable. No dilated bowel loops. No bowel wall thickening. APPENDIX: Not visualized. PERITONEAL CAVITY: No fluid. No fat stranding. ABDOMINAL WALL: Redemonstrated skin thickening of the lower anterior abdominal wall pannus. No abscess. LYMPH NODES: No mesenteric or retroperitoneal lymphadenopathy by CT criteria. ABDOMINAL AORTA: No aneurysm. PELVIS: No acute abnormality. Status post hysterectomy. MUSCULOSKELETAL: No acute osseous abnormality. CT/CT abdomen pelvis wo con IMPRESSION: No acute abnormality in the abdomen or pelvis. No obstructive uropathy. Electronically authenticated by: JORGE LUIS GLASS Date: 05/10/2024 17:54
--- NOTE | 2024-05-10 17:18 | ED_ITS ---
HPI - Female Genitourinary General Chief complaint: Urogenital-Female Stated complaint: BLOOD IN URINE, NAUSEA Time Seen by Provider: 05/10/24 17:04 Source: patient Mode of arrival: walk-in Limitations: no limitations History of Present Illness HPI Narrative: 43-year-old female presents for right flank pain and hematuria. She saw her urologist about a month ago and she states a CAT scan was performed which showed some very small stones in her right kidney. She has now developed some hematuria and right flank pain and there is been no injury. The pain is only on the right and its moderate and there is no history of a fever. The pain does not seem to radiate. Related Data Home Medications ?Medication ?Instructions ?Recorded ?Confirmed ciprofloxacin HCl 500 mg tablet 500 mg PO Q12H 04/08/24 04/08/24 lamotrigine 100 mg tablet 100 mg PO QDAY 04/08/24 04/08/24 lorazepam 1 mg tablet 1 mg PO Q8H 04/08/24 04/08/24 metoprolol succinate 50 mg 50 mg PO Q12H 04/08/24 04/08/24 tablet,extended release 24 hr omeprazole 40 mg capsule,delayed 40 mg PO .qhs 04/08/24 04/08/24 release oxycodone-acetaminophen 5 mg-325 1 tab PO Q6H PRN pain 04/08/24 04/08/24 mg tablet Previous Rx's ?Medication ?Instructions ?Recorded dicyclomine 20 mg tablet 20 mg PO TID abdominal pain 2 days 10/30/23 #6 tabs ondansetron HCl 4 mg tablet 4 mg PO Q6H PRN nausea and 10/30/23 vomiting #12 tabs cephalexin 500 mg capsule 500 mg PO TID 7 days #21 caps 05/10/24 hydrocodone 5 mg-acetaminophen 325 1 tab PO Q6H PRN pain 5 days #20 05/10/24 mg tablet tabs ondansetron 4 mg disintegrating 4 mg PO Q6H PRN nausea and 05/10/24 tablet vomiting #20 tabs Allergies Allergy/AdvReac Type Severity Reaction Status Date / Time ketorolac [From Toradol] Allergy Anaphylaxis Verified 04/08/24 13:16 tramadol Allergy Anaphylaxis Verified 04/08/24 13:16 Review of Systems ROS Narrative A ten point review of systems is negative except as noted above. PFSH PFSH Social History Smoking status: Former smoker Little interest or pleasure in doing things: not at all Feeling down, depressed, or hopeless: not at all Exam Narrative Exam Narrative: Nurses note and vital signs reviewed and patient is not hypoxic. General: The patient appears uncomfortable Skin: Warm, dry, no pallor noted. There is no rash noted. Head: Normocephalic, atraumatic Eye: Normal conjunctiva, no drainage Ears, Nose, Mouth, and Throat: oral mucosa is moist. Nares patent. Cardiovascular: Regular Rate and Rhythm Respiratory: Patient is in no distress, no accessory muscle use, lungs are clear to auscultation, no wheezing, rales or rhonchi Back: non-tender GI: Obese, soft, nontender Musculoskeletal: The patient has no evidence of calf tenderness, no pitting edema, symmetrical pulses noted bilaterally Neurological: A&O, normal speech Psychiatric: Cooperative Constitutional Vital Signs, click to edit/add: Last Vital Signs Temp 98.3 F 05/10/24 17:01 Pulse 106 H 05/10/24 17:01 Resp 18 05/10/24 17:01 BP 183/91 H 05/10/24 17:01 Pulse Ox 98 05/10/24 17:01 O2 Del Method Room Air 05/10/24 17:01 Course Vital Signs Vital signs: Vital Signs Temperature 98.3 F 05/10/24 17:01 Pulse Rate 106 H 05/10/24 17:01 Respiratory Rate 18 05/10/24 17:01 Blood Pressure 183/91 H 05/10/24 17:01 Pulse Oximetry 98 05/10/24 17:01 Oxygen Delivery Method Room Air 05/10/24 17:01 Temperature 98.3 F 05/10/24 17:01 Pulse Rate 106 H 05/10/24 17:01 Respiratory Rate 18 05/10/24 17:01 Blood Pressure 183/91 H 05/10/24 17:01 Pulse Oximetry 98 05/10/24 17:01 Oxygen Delivery Method Room Air 05/10/24 17:01 MDM - Female Genitourinary MDM Narrative Medical decision making narrative: CT shows no hydronephrosis or stones. She does have hematuria and is placed on Keflex and [place] and will follow-up with her urologist in [place]. Treatment diagnosis and follow-up were discussed with the patient. Differential Diagnosis Differential diagnosis: Likely urinary tract infection and other (Kidney stone, hematuria) Lab Data Attestation: I reviewed the patient's lab results. Labs: Lab Results 05/10/24 05/10/24 Range/Units 17:25 17:30 WBC 6.4 (4.0-11.0) 10^3/uL RBC 4.25 (4.20-5.40) 10^6/uL Hgb 8.8 L (12.0-16.0) g/dL Hct 30.0 L (36.0-48.0) % MCV 70.6 L (81.0-99.0) fL MCH 20.7 L (26.7-34.0) pg MCHC 29.3 L (29.9-35.2) g/dL RDW 18.2 H (11.0-15.0) % Plt Count 339 (150-450) 10^3/uL MPV 8.3 L (9.5-13.5) fL Neut % (Auto) 59.2 (43.0-75.0) % Lymph % (Auto) 31.3 (20.5-60.0) % [place] % (Auto) 6.6 (1.7-12.0) % Eos % (Auto) 2.0 (0.9-7.0) % Baso % (Auto) 0.6 (0.2-2.0) % Neut # (Auto) 3.8 (1.4-6.5) 10^3/uL Lymph # (Auto) 2.0 (1.2-3.8) 10^3/uL [place] # (Auto) 0.4 (0.3-0.8) 10^3/uL Eos # (Auto) 0.1 (0.0-0.7) 10^3/uL Baso # (Auto) 0.0 (0.0-0.1) 10^3/uL Abs Immat Gran (auto) 0.02 (0.00-0.03) 10^3/uL Imm/Tot Granulo (auto) 0.3 (0.0-0.5) % Sodium 134 L (136-145) mmol/L Potassium 4.2 (3.5-5.1) mmol/L Chloride 100 (98-107) mmol/L Carbon Dioxide 28.9 (21.0-32.0) mmol/L Anion Gap 9.3 BUN 7.0 (7.0-18.0) mg/dL Creatinine 0.79 (0.55-1.02) mg/dL Est GFR ( Amer) >60 (>=60) Est GFR (Non-Af Amer) >60 (>=60) BUN/Creatinine Ratio 8.9 Glucose 160 H (74-106) mg/dL Calcium 8.7 (8.5-10.1) mg/dL Urine Color Red A (YELLOW) Urine Clarity Cloudy A (CLEAR) Urine pH 6.5 (5.0-9.0) Ur Specific [place] 0.010 (1.005-1.025) Urine Protein Negative (NEG/TRACE) mg/dL Urine Glucose (UA) Negative (NEGATIVE) mg/dL Urine Ketones Negative (NEGATIVE) mg/dL Urine Occult Blood Large A (NEGATIVE) Urine Nitrite Negative (NEGATIVE) Urine Bilirubin Negative (NEGATIVE) Urine Urobilinogen 0.2 (0.2-1.0) EU/dL Ur Leukocyte Esterase Negative (NEGATIVE) Urine RBC >100 A (0-2) #/HPF Urine WBC None seen (NONE SEEN) #/HPF Ur Squamous Epith Cells Rare (NONE/RARE) #/LPF Urine Crystals None seen (None Seen) #/HPF Urine Bacteria None seen (NONE SEEN) #/HPF Urine Casts None seen (NONE SEEN) #/LPF Urine Mucus Trace A (NONE SEEN) Ur Culture Indicated? No Imaging Data CT scan - abdomen: Radiologist's impression: ITS Impressions Abdomen/Pelvis CT 05/10/24 17:17 IMPRESSION: No acute abnormality in the abdomen or pelvis. No obstructive uropathy. Electronically authenticated by: JORGE LUIS GLASS Date: 05/10/2024 17:54 Discharge Plan Discharge Chief Complaint: Urogenital-Female Clinical Impression: Renal colic, Hematuria Patient Disposition: Home, Self-Care Time of Disposition Decision: 18:38 Condition: Good Mode of Transportation: Private Vehicle Prescriptions / Home Meds: New cephalexin 500 mg capsule 500 mg PO TID 7 Days Qty: 21 0RF hydrocodone-acetaminophen 5-325 mg tablet 1 tab PO Q6H PRN (Reason: pain) 5 Days Qty: 20 0RF ondansetron 4 mg tablet,disintegrating 4 mg PO Q6H PRN (Reason: nausea and vomiting) Qty: 20 0RF No Action ciprofloxacin HCl 500 mg tablet 500 mg PO Q12H lamotrigine 100 mg tablet 100 mg PO QDAY lorazepam 1 mg tablet 1 mg PO Q8H metoprolol succinate 50 mg tablet extended release 24 hr 50 mg PO Q12H omeprazole 40 mg capsule,delayed release(DR/EC) 40 mg PO .qhs oxycodone-acetaminophen 5-325 mg tablet 1 tab PO Q6H PRN (Reason: pain) ondansetron HCl 4 mg tablet 4 mg PO Q6H PRN (Reason: nausea and vomiting) Qty: 12 0RF dicyclomine 20 mg tablet 20 mg PO TID 2 Days Qty: 6 0RF Print Language: Bulgarian Instructions: Renal Colic (ED), Hematuria (ED) Referrals: Julita Saunders INSPECTOR PL[employer] SE[employer] [Primary Care Provider] - 1 week
[2024-05-10] MEDS: ONDANSETRON PF 4 MG/2 ML VIAL IV (17:35)
[2024-05-10] MEDS: MORPHINE SULFATE 4 MG/ML VIAL IV (17:35)
[2024-05-10 18:16] LABS: Clarity Urine CLOUDY (CLEAR); Color Urine RED (YELLOW); pH Urine 6.5 (5.0-9.0)
[2024-05-10 18:17] LABS: Bilirubin Urine NEGATIVE (NEGATIVE); Blood Urine LARGE (NEGATIVE); Glucose Urine UA NEGATIVE (NEGATIVE); Ketones Urine NEGATIVE (NEGATIVE); Leukocyte Esterase Urine NEGATIVE (NEGATIVE); Nitrite Urine NEGATIVE (NEGATIVE); Protein Urine NEGATIVE (NEG/TRACE); Urobilinogen Urine 0.2 EU/dL (0.2-1.0)
[2024-05-10 18:17] LABS: Basophils Percent Auto 0.6 % (0.2-2.0); Eosinophils Absolute Auto 0.1 10^3/uL (0.0-0.7); Hemoglobin 8.8 g/dL (12.0-16.0); Immature Granulocytes Abs Auto 0.02 10^3/uL (0.00-0.03); Immature Granulocytes Pct Auto 0.3 % (0.0-0.5); Lymphocytes Percent Auto 31.3 % (20.5-60.0); Mean Corpuscular HGB Conc 29.3 g/dL (29.9-35.2); Mean Corpuscular Hemoglobin 20.7 pg (26.7-34.0); Mean Corpuscular Volume 70.6 fL (81.0-99.0); Mean Platelet Volume 8.3 fL (9.5-13.5); Monocytes Absolute Auto 0.4 10^3/uL (0.3-0.8); Monocytes Percent Auto 6.6 % (1.7-12.0); Neutrophils Absolute Auto 3.8 10^3/uL (1.4-6.5); Neutrophils Percent Auto 59.2 % (43.0-75.0); Platelet Count 339 10^3/uL (150-450); Red Blood Count 4.25 10^6/uL (4.20-5.40); Red Cell Distribution Width 18.2 % (11.0-15.0); White Blood Count 6.4 10^3/uL (4.0-11.0)
[2024-05-10 18:18] LABS: Anion Gap 9.3; BUN Creatinine Ratio 8.9; Calcium 8.7 mg/dL (8.5-10.1); Carbon Dioxide 28.9 mmol/L (21.0-32.0); Chloride 100 mmol/L (98-107); Estimated GFR (African America >60 (>=60); Estimated GFR (Non-African Ame >60 (>=60); Glucose 160 mg/dL (74-106); Potassium 4.2 mmol/L (3.5-5.1); Sodium 134 mmol/L (136-145)
[2024-05-10 18:33] LABS: Bacteria Urine NONE SEEN #/HPF (NONE SEEN); Cast Seen? NONE SEEN #/LPF (NONE SEEN); Crystals Seen? None Seen #/HPF (None Seen); Mucus Urine TRACE (NONE SEEN); RBC Urine >100 #/HPF (0-2); Squamous Epithelial Cell Urine RARE #/LPF (NONE/RARE); WBC Urine NONE SEEN #/HPF (NONE SEEN)
[2024-05-10 18:34] LABS: Urine Culture Indicated NO
[2024-05-10] MEDS: HYDROCODONE/ACET 5-325 MG TABLET 1 TAB PO (19:10)
[2024-05-10 19:13] VITALS: BP 150/71
--- NOTE | 2024-05-10 19:15 | PC.NURSE ---
Pt given discharge instructions given to pt and sent home with a Chan to go (pt's pharmacy closed at 1900) Pt encouraged to follow up with her family Dr or return if any problem. scripts sent to [facility] for Ayse/Chan and Deacon GOMES.
== END 2024-05-10 19:14 | disposition home or self-care (01) ==
PROVIDERS: Emergency Provider Emergency Medicine; PCP Nurse Practitioner
DX: N23 Unspecified renal colic (principal); R31.9 Hematuria, unspecified; Z87.891 Personal history of nicotine dependence; E66.9 Obesity, unspecified; Z68.42 Body mass index [BMI] 45.0-49.9, adult
CPT/HCPCS: 36415; 74176; 80048; 81001; 85025; 96374; 96375; 99285; J2270; J2405

== ENCOUNTER 2024-06-10 14:07 | Emergency (ER) | payer OTHER, SELFPAY ==
[2024-06-10 14:11] VITALS: BP 169/80; PULSE 101; TEMP 36.5; O2SAT 96; BMI 42.7
[2024-06-10] MEDS: 0.9 % SODIUM CHLORIDE 1,000 ML 1000 ML IV (14:31)
--- NOTE | 2024-06-10 14:43 | CT_ITS ---
The [address] [address] Patient Name: BRIE DUMONT MRN: [id number] date: 1980 Sex: F Assigned Patient Location: ER Current Patient Location: ER Accession/Order Number: [id number] Exam Date: 06/10/2024 14:54 Report Date: 06/10/2024 15:53 At the request of: GRACIE LYNNE Procedure: CT abdomen pelvis wo con CT ABDOMEN/PELVIS WITHOUT IV CONTRAST. INDICATION: left flank pain and hx of stone COMPARISON: 05/10/2024 TECHNIQUE: Contiguous axial images were obtained from the lung bases to the pelvic floor without intravenous or oral contrast. Coronal and sagittal reformations are provided. FINDINGS: LOWER LUNGS: Clear. LIVER/BILIARY TREE: No discrete lesion. No intrahepatic ductal dilatation. GALLBLADDER: Status post cholecystectomy.. CBD: Normal CBD. SPLEEN: Normal in size. PANCREAS: No appreciable peripancreatic fluid. No pancreatic ductal dilatation. No discrete lesion. ADRENALS: Normal. KIDNEYS: No hydronephrosis. No radiopaque calculus. STOMACH AND BOWEL: Stomach is unremarkable. No dilated bowel loops. No bowel wall thickening. APPENDIX: Not well-visualized. PERITONEAL CAVITY: No fluid. No fat stranding. ABDOMINAL WALL: Redemonstrated skin thickening of the lower anterior abdominal wall. No fluid collection. LYMPH NODES: No mesenteric or retroperitoneal lymphadenopathy by CT criteria. ABDOMINAL AORTA: No aneurysm. PELVIS: No acute abnormality. Status post hysterectomy. MUSCULOSKELETAL: No acute osseous abnormality. CT/CT abdomen pelvis wo con IMPRESSION: No acute abnormality in the abdomen or pelvis. No obstructive uropathy. Electronically authenticated by: JORGE LUIS GLASS Date: 06/10/2024 15:53
[2024-06-10 14:46] LABS: Basophils Percent Auto 0.6 % (0.2-2.0); Eosinophils Absolute Auto 0.1 10^3/uL (0.0-0.7); Eosinophils Percent Auto 1.6 % (0.9-7.0); Hematocrit 29.9 % (36.0-48.0); Hemoglobin 8.8 g/dL (12.0-16.0); Immature Granulocytes Abs Auto 0.03 10^3/uL (0.00-0.03); Immature Granulocytes Pct Auto 0.5 % (0.0-0.5); Lymphocytes Absolute Auto 1.9 10^3/uL (1.2-3.8); Lymphocytes Percent Auto 29.6 % (20.5-60.0); Mean Corpuscular HGB Conc 29.4 g/dL (29.9-35.2); Mean Corpuscular Hemoglobin 20.8 pg (26.7-34.0); Mean Corpuscular Volume 70.7 fL (81.0-99.0); Mean Platelet Volume 8.7 fL (9.5-13.5); Monocytes Absolute Auto 0.5 10^3/uL (0.3-0.8); Monocytes Percent Auto 7.7 % (1.7-12.0); Neutrophils Absolute Auto 3.8 10^3/uL (1.4-6.5); Platelet Count 306 10^3/uL (150-450); Red Blood Count 4.23 10^6/uL (4.20-5.40); Red Cell Distribution Width 21.3 % (11.0-15.0); White Blood Count 6.4 10^3/uL (4.0-11.0)
--- NOTE | 2024-06-10 14:53 | ED.ABDPAIN1 ---
HPI - Abdominal Pain General Chief Complaint: Abdominal Pain Stated Complaint: ABDOMINAL PAIN, FLANK PAIN Time Seen by Provider: 06/10/24 14:18 Source: patient Mode of arrival: walk-in Limitations: no limitations History of Present Illness HPI narrative: 43-year-old female is coming to us with a left-sided flank pain that been going on at least from a week on and off but yesterday started being fixed, it mostly in the left lower quadrant to radiate into her left flank area, patient mentioned that she was evaluated by her urologist almost 2 weeks ago when she had a bedside ultrasound showing a kidney stone almost getting into the bladder and that while she was planned to have a cystoscopy this week the patient denies any fever or chills but she has been having some nausea and vomiting associated with the pain and she gave the pain 8 out of 10 The patient have a history of history of hysterectomy Related Data Home Medications ?Medication ?Instructions ?Recorded ?Confirmed lamotrigine 100 mg tablet 100 mg PO QDAY 04/08/24 06/10/24 lorazepam 1 mg tablet 1 mg PO Q8H 04/08/24 06/10/24 metoprolol succinate 50 mg 50 mg PO Q12H 04/08/24 06/10/24 tablet,extended release 24 hr omeprazole 40 mg capsule,delayed 40 mg PO .qhs 04/08/24 06/10/24 release oxycodone-acetaminophen 5 mg-325 1 tab PO Q6H PRN pain 04/08/24 06/10/24 mg tablet Previous Rx's ?Medication ?Instructions ?Recorded ondansetron HCl 4 mg tablet 4 mg PO Q6H PRN nausea and 10/30/23 vomiting #12 tabs ondansetron 4 mg disintegrating 4 mg PO Q6H PRN nausea and 05/10/24 tablet vomiting #20 tabs dicyclomine 20 mg tablet 20 mg PO QID PRN abdominal pain #7 06/10/24 tabs Allergies Allergy/AdvReac Type Severity Reaction Status Date / Time ketorolac (From Toradol) Allergy Anaphylaxis Verified 04/08/24 13:16 tramadol Allergy Anaphylaxis Verified 04/08/24 13:16 Review of Systems ROS Status of ROS 10 or more systems reviewed and unremarkable except as noted in history and below PFSH PFSH Social History Smoking status: Former smoker Little interest or pleasure in doing things: not at all Feeling down, depressed, or hopeless: not at all Exam Narrative Exam Narrative: Nurses notes and vital signs reviewed and patient is not hypoxic. General: Well-appearing and in no apparent distress. Skin: Warm, dry, no pallor noted. No rash. Head: Normocephalic, atraumatic. Neck: Supple, non-tender. Eye: Pupils are equal, round and EOMI. No scleral icterus. Ears, Nose, Mouth, and Throat: TM are clear, no nasal mucosal hypertrophy. Oral mucosa is moist, no posterior oropharynx erythema, uvula is mid-line Cardiovascular: Regular Rate and Rhythm without murmur, gallop or rub. Respiratory: No accessory muscle use or respiratory distress. Lungs are clear to auscultation, no wheezing, rales or rhonchi Chest Wall: no tenderness Back: No midline thoracic or lumbar vertebral tenderness. Left-sided CVA Musculoskeletal: normal ROM, no calf or popliteal tenderness, no lower extremity edema/swelling GI: Abdomen is soft, non-distended. Normal bowel sounds. No masses appreciated. Left lower quadrant tenderness ,no rebound, guarding, or rigidity noted. Neurological: A&O x4. No cranial nerve dysfunction observed. No truncal ataxia. Moves all extremities. Sensation intact. Psychiatric: Cooperative and interactive. Normal mood and affect. Constitutional Vital Signs, click to edit/add: Last Vital Signs Temp 97.7 F 06/10/24 14:11 Pulse 101 H 06/10/24 14:11 Resp 18 06/10/24 14:11 BP 169/80 H 06/10/24 14:11 Pulse Ox 96 06/10/24 14:11 O2 Del Method Room Air 06/10/24 14:11 Course Vital Signs Vital signs: Vital Signs Temperature 97.7 F 06/10/24 14:11 Pulse Rate 101 H 06/10/24 14:11 Respiratory Rate 18 06/10/24 14:11 Blood Pressure 169/80 H 06/10/24 14:11 Pulse Oximetry 96 06/10/24 14:11 Oxygen Delivery Method Room Air 06/10/24 14:11 Temperature 97.7 F 06/10/24 14:11 Pulse Rate 101 H 06/10/24 14:11 Respiratory Rate 18 06/10/24 14:11 Blood Pressure 169/80 H 10/13/24 14:11 Pulse Oximetry 96 06/10/24 14:11 Oxygen Delivery Method Room Air 06/10/24 14:11 MDM - Abdominal Pain MDM Narrative Medical decision making narrative: The patient CBC and chemistry showed no acute pathology CAT scan of the abdomen pelvis showed no acute pathology Patient was feeling better after she was treated with morphine Urinalysis showed no acute pathology but the patient did have some hematuria which could be secondary to passing kidney stone Patient was instructed to to monitor her symptoms at home but she will continue supportive care with Bentyl and hydration The patient is to follow up with primary care physician in next 2-3 days or to return to the emergency department should any of the signs or symptoms worsen or new symptoms develop. The patient agrees with the following Diagnosis and Treatment plan and the patient will be discharged home. Lab Data Labs: Lab Results 06/10/24 06/10/24 Range/Units 14:35 14:37 WBC 6.4 (4.0-11.0) 10^3/uL RBC 4.23 (4.20-5.40) 10^6/uL Hgb 8.8 L (12.0-16.0) g/dL Hct 29.9 L (36.0-48.0) % MCV 70.7 L (81.0-99.0) fL MCH 20.8 L (26.7-34.0) pg MCHC 29.4 L (29.9-35.2) g/dL RDW 21.3 H (11.0-15.0) % Plt Count 306 (150-450) 10^3/uL MPV 8.7 L (9.5-13.5) fL Neut % (Auto) 60.0 (43.0-75.0) % Lymph % (Auto) 29.6 (20.5-60.0) % [place] % (Auto) 7.7 (1.7-12.0) % Eos % (Auto) 1.6 (0.9-7.0) % Baso % (Auto) 0.6 (0.2-2.0) % Neut # (Auto) 3.8 (1.4-6.5) 10^3/uL Lymph # (Auto) 1.9 (1.2-3.8) 10^3/uL [place] # (Auto) 0.5 (0.3-0.8) 10^3/uL Eos # (Auto) 0.1 (0.0-0.7) 10^3/uL Baso # (Auto) 0.0 (0.0-0.1) 10^3/uL Abs Immat Gran (auto) 0.03 (0.00-0.03) 10^3/uL Imm/Tot Granulo (auto) 0.5 (0.0-0.5) % PT 10.0 (9.0-11.6) sec INR 0.94 Sodium 139 (136-145) mmol/L Potassium 4.7 (3.5-5.1) mmol/L Chloride 102 (98-107) mmol/L Carbon Dioxide 25.6 (21.0-32.0) mmol/L Anion Gap 16.1 BUN 3.0 L (7.0-18.0) mg/dL Creatinine 0.74 (0.55-1.02) mg/dL Est GFR ( Amer) >60 (>=60 mL/min/1.73m^2) Est GFR (Non-Af Amer) >60 (>=60 mL/min/1.73m^2) BUN/Creatinine Ratio 4.1 Glucose 105 (74-106) mg/dL Lactate 1.9 (0.4-2.0) mmol/L Calcium 9.2 (8.5-10.1) mg/dL Total Bilirubin 0.6 (0.2-1.0) mg/dL AST 51 H (15-37) U/L ALT 30 (14-59) U/L Alkaline Phosphatase 81 (46-116) U/L Total Protein 7.8 (6.4-8.2) g/dL Albumin 3.2 L (3.4-5.0) g/dL Globulin 4.6 g/dL Albumin/Globulin Ratio 0.7 Urine Color Lt. red (YELLOW) Urine Clarity Clear (CLEAR) Urine pH 8.0 (5.0-9.0) Ur Specific [place] 1.010 (1.005-1.025) Urine Protein 30 A (NEG/TRACE) mg/dL Urine Glucose (UA) Negative (NEGATIVE) mg/dL Urine Ketones Negative (NEGATIVE) mg/dL Urine Occult Blood Large A (NEGATIVE) Urine Nitrite Negative (NEGATIVE) Urine Bilirubin Negative (NEGATIVE) Urine Urobilinogen 0.2 (0.2-1.0) EU/dL Ur Leukocyte Esterase Trace A (NEGATIVE) Urine RBC 20-50 A (0-2) #/HPF Urine WBC 0-2 A (NONE SEEN) #/HPF Ur Squamous Epith Cells Rare (NONE/RARE) #/LPF Urine Crystals None seen (None Seen) #/HPF Urine Bacteria None seen (NONE SEEN) #/HPF Urine Casts None seen (NONE SEEN) #/LPF Urine Mucus None seen (NONE SEEN) Ur Culture Indicated? No Discharge Plan Discharge Chief Complaint: Abdominal Pain Clinical Impression: Left flank pain, History of kidney stones Patient Disposition: Home, Self-Care Time of Disposition Decision: 16:19 Condition: Good Prescriptions / Home Meds: New dicyclomine 20 mg tablet 20 mg PO QID PRN (Reason: abdominal pain) Qty: 7 0RF No Action lamotrigine 100 mg tablet 100 mg PO QDAY lorazepam 1 mg tablet 1 mg PO Q8H metoprolol succinate 50 mg tablet extended release 24 hr 50 mg PO Q12H omeprazole 40 mg capsule,delayed release(DR/EC) 40 mg PO .qhs oxycodone-acetaminophen 5-325 mg tablet 1 tab PO Q6H PRN (Reason: pain) ondansetron HCl 4 mg tablet 4 mg PO Q6H PRN (Reason: nausea and vomiting) Qty: 12 0RF ondansetron 4 mg tablet,disintegrating 4 mg PO Q6H PRN (Reason: nausea and vomiting) Qty: 20 0RF Print Language: Vietnamese Instructions: Kidney Stones (ED), Abdominal Pain (ED) Referrals: Physician,Non-Staff, MD [Primary Care Provider] - 1 week
[2024-06-10 14:54] LABS: Bilirubin Urine NEGATIVE (NEGATIVE); Blood Urine LARGE (NEGATIVE); Clarity Urine CLEAR (CLEAR); Color Urine LT. RED (YELLOW); Glucose Urine UA NEGATIVE (NEGATIVE); Ketones Urine NEGATIVE (NEGATIVE); Leukocyte Esterase Urine TRACE (NEGATIVE); Nitrite Urine NEGATIVE (NEGATIVE); Protein Urine 30 mg/dL (NEG/TRACE); Urobilinogen Urine 0.2 EU/dL (0.2-1.0)
[2024-06-10 14:56] LABS: Urine Microscopic Indicated YES
[2024-06-10 15:01] LABS: Bacteria Urine NONE SEEN #/HPF (NONE SEEN); Cast Seen? NONE SEEN #/LPF (NONE SEEN); Crystals Seen? None Seen #/HPF (None Seen); Mucus Urine NONE SEEN (NONE SEEN); RBC Urine 20-50 #/HPF (0-2); Squamous Epithelial Cell Urine RARE #/LPF (NONE/RARE); Urine Culture Indicated NO; WBC Urine 0-2 #/HPF (NONE SEEN)
[2024-06-10] MEDS: FAMOTIDINE/PF 20 MG/2 ML VIAL IV (15:04)
[2024-06-10] MEDS: MORPHINE SULFATE 2 MG/ML SYRINGE IV (15:04)
[2024-06-10] MEDS: ONDANSETRON PF 4 MG/2 ML VIAL IV (15:04)
[2024-06-10 15:07] LABS: Alanine Aminotransferase 30 U/L (14-59); Albumin Globulin Ratio 0.7; Albumin Level 3.2 g/dL (3.4-5.0); Alkaline Phosphatase 81 U/L (46-116); Anion Gap 16.1; Aspartate Amino Transferase 51 U/L (15-37); BUN Creatinine Ratio 4.1; Bilirubin Total 0.6 mg/dL (0.2-1.0); Calcium 9.2 mg/dL (8.5-10.1); Carbon Dioxide 25.6 mmol/L (21.0-32.0); Chloride 102 mmol/L (98-107); Estimated GFR (African America >60 (>=60 mL/min/1.73m^2); Estimated GFR (Non-African Ame >60 (>=60 mL/min/1.73m^2); Globulin 4.6 g/dL; Glucose 105 mg/dL (74-106); INR 0.94; Potassium 4.7 mmol/L (3.5-5.1); Sodium 139 mmol/L (136-145); Total Protein 7.8 g/dL (6.4-8.2)
[2024-06-10 15:09] LABS: Lactate/Lactic Acid 1.9 mmol/L (0.4-2.0)
[2024-06-10] MEDS: MORPHINE SULFATE 4 MG/ML VIAL 3 MG IV (16:18)
[2024-06-10 16:31] VITALS: BP 148/65; PULSE 89; O2SAT 99
== END 2024-06-10 16:32 | disposition home or self-care (01) ==
PROVIDERS: Emergency Provider Emergency Medicine
DX: R10.32 Left lower quadrant pain (principal); Z87.442 Personal history of urinary calculi; Z90.49 Acquired absence of other specified parts of digestive tract; Z90.710 Acquired absence of both cervix and uterus; Z87.891 Personal history of nicotine dependence
CPT/HCPCS: 36415; 74176; 80053; 81001; 83605; 84703; 85025; 85610; 96374; 96375; 96376; 99285; J2270; J2405

== ENCOUNTER 2024-06-25 16:57 | Emergency (ER) | payer OTHER, SELFPAY ==
[2024-06-25 17:13] VITALS: BP 166/77; PULSE 100; O2SAT 98; BMI 45.2
[2024-06-25 17:17] VITALS: TEMP 36.9
[2024-06-25 17:43] LABS: Clarity Urine CLEAR (CLEAR); Color Urine DK. ORANGE (YELLOW); Specific Gravity Urine <=1.005 (1.005-1.025)
[2024-06-25 17:44] LABS: Bilirubin Urine COLOR INTERFERENCE (NEGATIVE); Blood Urine COLOR INTERFERENCE (NEGATIVE); Glucose Urine UA COLOR INTERFERENCE mg/dL (NEGATIVE); Ketones Urine COLOR INTERFERENCE mg/dL (NEGATIVE); Leukocyte Esterase Urine COLOR INTERFERENCE (NEGATIVE); Nitrite Urine COLOR INTERFERENCE (NEGATIVE); Protein Urine COLOR INTERFERENCE mg/dL (NEG/TRACE); Urobilinogen Urine COLOR INTERFERENCE EU/dL (0.2-1.0); pH Urine COLOR INTERFERENCE (5.0-9.0)
[2024-06-25 17:45] LABS: Urine Microscopic Indicated YES
[2024-06-25 17:50] LABS: Cast Seen? NONE SEEN #/LPF (NONE SEEN); Crystals Seen? None Seen #/HPF (None Seen); Mucus Urine NONE SEEN (NONE SEEN); RBC Urine 50-75 #/HPF (0-2); Squamous Epithelial Cell Urine MODERATE #/LPF (NONE/RARE)
[2024-06-25 17:51] LABS: Bacteria Urine SMALL #/HPF (NONE SEEN); Urine Culture Indicated YES
--- NOTE | 2024-06-25 18:02 | ED_ITS ---
Documented by User: MARLO Ortiz 06/25/24 19:03 HPI HPI - General Adult General Chief complaint: Urogenital-Female Stated complaint: blood in urine Time Seen by Provider: 06/25/24 17:52 Source: patient Mode of arrival: walk-in Limitations: no limitations History of Present Illness HPI narrative: Patient is a 44-year-old female well-known to this emergency department who presents to the ER for nausea, hematuria and bladder pain that began today. Patient was seen at 5 days ago for cystoscopy. She had a CT in this emergency department 2 weeks ago which showed no evidence of kidney stones, obstructive uropathy or other acute process. She states she had the cystoscopy done for hematuria and suspected bladder stones. She states the urologist said that everything looked good and a biopsy was done for lesion. She states today she vomited, still feels nauseous and noted blood in her urine. No objective fevers. Of note this patient has been to this emergency department multiple times over the last several months with complaints of flank pain and hematuria, she had [address] scans in the last month showing no evidence of kidney stone or hydronephrosis. [facility]RS shows the patient has had 8 prescriptions for narcotics from different providers since 05/23/2024. Related Data Home Medications ?Medication ?Instructions ?Recorded ?Confirmed lamotrigine 100 mg tablet 100 mg PO QDAY 04/08/24 06/10/24 lorazepam 1 mg tablet 1 mg PO Q8H 04/08/24 06/10/24 metoprolol succinate 50 mg 50 mg PO Q12H 04/08/24 06/10/24 tablet,extended release 24 hr omeprazole 40 mg capsule,delayed 40 mg PO .qhs 04/08/24 06/10/24 release oxycodone-acetaminophen 5 mg-325 1 tab PO Q6H PRN pain 04/08/24 06/10/24 mg tablet Previous Rx's ?Medication ?Instructions ?Recorded ondansetron HCl 4 mg tablet 4 mg PO Q6H PRN nausea and 10/30/23 vomiting #12 tabs ondansetron 4 mg disintegrating 4 mg PO Q6H PRN nausea and 05/10/24 tablet vomiting #20 tabs dicyclomine 20 mg tablet 20 mg PO QID PRN abdominal pain #7 06/10/24 tabs Allergies Allergy/AdvReac Type Severity Reaction Status Date / Time ketorolac (From Toradol) Allergy Anaphylaxis Verified 04/08/24 13:16 tramadol Allergy Anaphylaxis Verified 04/08/24 13:16 Opioid HPI Opioid Management Most Recent Opioid Data: Last Pain Scale 7 06/10/24 16:18 06/10/24 Review of Systems ROS Constitutional Reports: fever; Denies: chills Ears, nose, mouth, and throat Denies: throat pain or nasal congestion Cardiovascular Denies: chest pain Respiratory Denies: shortness of breath Gastrointestinal Reports: abdominal pain, nausea and vomiting; Denies: diarrhea Genitourinary Reports: painful urination and blood in urine Musculoskeletal Denies: back pain Integumentary/Breast Denies: rash Neurological Denies: numbness in extremities or weakness in extremities Hematologic/Lymphatic Denies: easy bruising or easy bleeding PFSH PFSH Social History Smoking status: Former smoker Little interest or pleasure in doing things: not at all Feeling down, depressed, or hopeless: not at all Exam Narrative Exam Narrative: Gen.: Awake, alert, in no distress Head: Normocephalic, atraumatic ENT: Moist mucous membranes Respiratory: No respiratory distress, lungs clear bilaterally Cardio: Regular rate and rhythm Gastrointestinal: Abdomen is soft, nondistended and nontender to palpation Extremities: Moves extremities equally Psych: Normal mood and affect Neuro: No focal neuro deficit Skin: Warm, dry, intact Constitutional Vital Signs, click to edit/add: Last Vital Signs Temp 98.5 F 06/25/24 17:17 Pulse 100 H 06/25/24 17:13 Resp 18 06/25/24 17:13 BP 166/77 H 06/25/24 17:13 Pulse Ox 98 06/25/24 17:13 O2 Del Method Room Air 06/25/24 17:13 Course Vital Signs Vital signs: Vital Signs Pulse Rate 100 H 06/25/24 17:13 Respiratory Rate 18 06/25/24 17:13 Blood Pressure 166/77 H 06/25/24 17:13 Pulse Oximetry 98 06/25/24 17:13 Oxygen Delivery Method Room Air 06/25/24 17:13 Temperature 98.5 F 06/25/24 17:17 Pulse Rate 100 H 06/25/24 17:13 Respiratory Rate 18 06/25/24 17:13 Blood Pressure 166/77 H 06/25/24 17:13 Pulse Oximetry 98 06/25/24 17:13 Oxygen Delivery Method Room Air 06/25/24 17:13 Medical Decision Making MDM Narrative Medical decision making narrative: This patient has had multiple presentations to this emergency department since October of this year, she had 4 CT scans of the abdomen and pelvis monthly since February of this year. None of the CT scans have shown any acute pathology, kidney stones or hydronephrosis. She has had multiple narcotic prescriptions from multiple different providers, 8 prescriptions in the last 4 weeks. Lab studies show the patient has blood in her urine with otherwise unremarkable labs and stable anemia. She had a negative CT scan 2 weeks ago. Patient was reevaluated by attending physician. While we were waiting for her labs to result, the patient called the nursing assembly room supervisor to state that no one had been in to see her, she did not know what her treatment plan was and no one was taking care of her. Patient was reevaluated by Dr. Sawyer with JONO Hernandez nursing assembly room supervisor present for the entire conversation. It was explained to the patient that she does not need additional imaging at this time as she had a negative CT scan 2 weeks ago, she told me at initial interview that she is taking Pyridium already. She was given Zofran in the ER. No additional narcotics indicated at this time. Patient discharged to follow-up with her urologist, we are awaiting urine culture at this time. Return to the ER if symptoms change or worsen. Patient is hemodynamically stable at discharge. SHARED APC VISIT, PHYSICIAN ATTESTATION: [id number] I performed a substantive part of the MDM during the patient?s E/M visit. I personally evaluated and examined the patient. I personally made or approved the documented management plan and acknowledge its risk of complications. Medical Records Medical records reviewed: Yes I reviewed the patient's medical records Lab Data Lab results reviewed: Yes I reviewed the patient's lab results Labs: Lab Results 06/25/24 06/25/24 Range/Units 17:10 18:20 WBC 5.7 (4.0-11.0) 10^3/uL RBC 3.95 L (4.20-5.40) 10^6/uL Hgb 8.4 L (12.0-16.0) g/dL Hct 27.8 L (36.0-48.0) % MCV 70.4 L (81.0-99.0) fL MCH 21.3 L (26.7-34.0) pg MCHC 30.2 (29.9-35.2) g/dL RDW 19.9 H (11.0-15.0) % Plt Count 298 (150-450) 10^3/uL MPV 8.3 L (9.5-13.5) fL Neut % (Auto) 57.3 (43.0-75.0) % Lymph % (Auto) 32.0 (20.5-60.0) % [place] % (Auto) 8.1 (1.7-12.0) % Eos % (Auto) 1.6 (0.9-7.0) % Baso % (Auto) 0.5 (0.2-2.0) % Neut # (Auto) 3.3 (1.4-6.5) 10^3/uL Lymph # (Auto) 1.8 (1.2-3.8) 10^3/uL [place] # (Auto) 0.5 (0.3-0.8) 10^3/uL Eos # (Auto) 0.1 (0.0-0.7) 10^3/uL Baso # (Auto) 0.0 (0.0-0.1) 10^3/uL Abs Immat Gran (auto) 0.03 (0.00-0.03) 10^3/uL Imm/Tot Granulo (auto) 0.5 (0.0-0.5) % Sodium 137 (136-145) mmol/L Potassium 4.2 (3.5-5.1) mmol/L Chloride 101 (98-107) mmol/L Carbon Dioxide 22.5 (21.0-32.0) mmol/L Anion Gap 17.7 BUN 4.0 L (7.0-18.0) mg/dL Creatinine 0.85 (0.55-1.02) mg/dL Est GFR ( Amer) >60 (>=60 mL/min/1.73m^2) Est GFR (Non-Af Amer) >60 (>=60 mL/min/1.73m^2) BUN/Creatinine Ratio 4.7 Glucose 144 H (74-106) mg/dL Lactate 2.1 H (0.4-2.0) mmol/L Calcium 8.8 (8.5-10.1) mg/dL Urine Color Dk. orange (YELLOW) Urine Clarity Clear (CLEAR) Urine pH Color interference A (5.0-9.0) Ur Specific [place] <=1.005 A (1.005-1.025) Urine Protein Color interference A (NEG/TRACE) mg/dL Urine Glucose (UA) Color interference A (NEGATIVE) mg/dL Urine Ketones Color interference A (NEGATIVE) mg/dL Urine Occult Blood Color interference A (NEGATIVE) Urine Nitrite Color interference A (NEGATIVE) Urine Bilirubin Color interference A (NEGATIVE) Urine Urobilinogen Color interference A (0.2-1.0) EU/dL Ur Leukocyte Esterase Color interference A (NEGATIVE) Urine RBC 50-75 A (0-2) #/HPF Urine WBC 2-5 A (NONE SEEN) #/HPF Ur Squamous Epith Cells Moderate A (NONE/RARE) #/LPF Urine Crystals None seen (None Seen) #/HPF Urine Bacteria Small A (NONE SEEN) #/HPF Urine Casts None seen (NONE SEEN) #/LPF Urine Mucus None seen (NONE SEEN) Ur Culture Indicated? Yes Discharge Plan Discharge Chief Complaint: Urogenital-Female Clinical Impression: Hematuria Patient Disposition: Home, Self-Care Time of Disposition Decision: 19:00 Condition: Good Prescriptions / Home Meds: No Action lamotrigine 100 mg tablet 100 mg PO QDAY lorazepam 1 mg tablet 1 mg PO Q8H metoprolol succinate 50 mg tablet extended release 24 hr 50 mg PO Q12H omeprazole 40 mg capsule,delayed release(DR/EC) 40 mg PO .qhs oxycodone-acetaminophen 5-325 mg tablet 1 tab PO Q6H PRN (Reason: pain) dicyclomine 20 mg tablet 20 mg PO QID PRN (Reason: abdominal pain) Qty: 7 0RF ondansetron HCl 4 mg tablet 4 mg PO Q6H PRN (Reason: nausea and vomiting) Qty: 12 0RF ondansetron 4 mg tablet,disintegrating 4 mg PO Q6H PRN (Reason: nausea and vomiting) Qty: 20 0RF Print Language: Slovak Instructions: Hematuria (ED) Additional Instructions: Follow up with your urologist Referrals: Physician,Non-Staff, [Primary Care Provider] - 1 week Discharge Date/Time: 06/25/24 19:01 Documented by User: Shaun Sawyer MD 06/25/24 19:27 HPI HPI - General Adult General Chief complaint: Urogenital-Female Stated complaint: blood in urine Time Seen by Provider: 06/25/24 17:52 Related Data Home Medications ?Medication ?Instructions ?Recorded ?Confirmed lamotrigine 100 mg tablet 100 mg PO QDAY 04/08/24 06/10/24 lorazepam 1 mg tablet 1 mg PO Q8H 04/08/24 06/10/24 metoprolol succinate 50 mg 50 mg PO Q12H 04/08/24 06/10/24 tablet,extended release 24 hr omeprazole 40 mg capsule,delayed 40 mg PO .qhs 04/08/24 06/10/24 release oxycodone-acetaminophen 5 mg-325 1 tab PO Q6H PRN pain 04/08/24 06/10/24 mg tablet Previous Rx's ?Medication ?Instructions ?Recorded ondansetron HCl 4 mg tablet 4 mg PO Q6H PRN nausea and 10/30/23 vomiting #12 tabs ondansetron 4 mg disintegrating 4 mg PO Q6H PRN nausea and 05/10/24 tablet vomiting #20 tabs dicyclomine 20 mg tablet 20 mg PO QID PRN abdominal pain #7 06/10/24 tabs Allergies Allergy/AdvReac Type Severity Reaction Status Date / Time ketorolac (From Toradol) Allergy Anaphylaxis Verified 04/08/24 13:16 tramadol Allergy Anaphylaxis Verified 04/08/24 13:16 Opioid HPI Opioid Management Most Recent Opioid Data: Last Pain Scale 7 06/10/24 16:18 06/10/24 PFSH PFSH Social History Smoking status: Former smoker Little interest or pleasure in doing things: not at all Feeling down, depressed, or hopeless: not at all Exam Constitutional Vital Signs, click to edit/add: Last Vital Signs Temp 98.5 F 06/25/24 17:17 Pulse 100 H 06/25/24 17:13 Resp 18 06/25/24 17:13 BP 166/77 H 06/25/24 17:13 Pulse Ox 98 06/25/24 17:13 O2 Del Method Room Air 06/25/24 17:13 Course Vital Signs Vital signs: Vital Signs Pulse Rate 100 H 06/25/24 17:13 Respiratory Rate 18 06/25/24 17:13 Blood Pressure 166/77 H 06/25/24 17:13 Pulse Oximetry 98 06/25/24 17:13 Oxygen Delivery Method Room Air 06/25/24 17:13 Temperature 98.5 F 06/25/24 17:17 Pulse Rate 100 H 06/25/24 17:13 Respiratory Rate 18 06/25/24 17:13 Blood Pressure 166/77 H 06/25/24 17:13 Pulse Oximetry 98 06/25/24 17:13 Oxygen Delivery Method Room Air 06/25/24 17:13 Medical Decision Making MDM Narrative Medical decision making narrative: This patient has had multiple presentations to this emergency department since October of this year, she had 4 CT scans of the abdomen and pelvis monthly since February of this year. None of the CT scans have shown any acute pathology, kidney stones or hydronephrosis. She has had multiple narcotic prescriptions from multiple different providers, 8 prescriptions in the last 4 weeks. Lab studies show the patient has blood in her urine with otherwise unremarkable labs and stable anemia. She had a negative CT scan 2 weeks ago. Patient was reevaluated by attending physician. While we were waiting for her labs to result, the patient called the nursing assembly room supervisor to state that no one had been in to see her, she did not know what her treatment plan was and no one was taking care of her. Patient was reevaluated by Dr. Sawyer with JONO Hernandez nursing assembly room supervisor present for the entire conversation. It was explained to the patient that she does not need additional imaging at this time as she had a negative CT scan 2 weeks ago, she told me at initial interview that she is taking Pyridium already. She was given Zofran in the ER. No additional narcotics indicated at this time. Patient discharged to follow-up with her urologist, we are awaiting urine culture at this time. Return to the ER if symptoms change or worsen. Patient is hemodynamically stable at discharge. SHARED APC VISIT, PHYSICIAN ATTESTATION: [id number] I performed a substantive part of the MDM during the patient?s E/M visit. I personally evaluated and examined the patient. I personally made or approved the documented management plan and acknowledge its risk of complications. I, Dr Sawyer, have reviewed the above progress note and course of action in the ER; agree with the above. I have personally seen and evaluated this patient, gone over history and physical, and discussed disposition and treatment plan with the patient. I have spoken to the patient at discharge with Mary assembly room supervisor RN. There is no acute indication for pain medication in the ER and there is no acute indication for pain medication at discharge. OARRS report has been done on this patient as well, she has received multiple narcotic prescriptions in the last several weeks. No acute indication for antibiotic at this time, urine cultures pending. Patient called her urology office and she was told to go to the ER. Patient was told that she can call urology office tomorrow if there is any indication for additional pain medication, she can receive that tomorrow from her urologist or call her PCP. Patient saw a [employer] physician assistant basketball coach when she initially arrived, I saw patient at discharge. Lab Data Labs: Lab Results 06/25/24 06/25/24 Range/Units 17:10 18:20 WBC 5.7 (4.0-11.0) 10^3/uL RBC 3.95 L (4.20-5.40) 10^6/uL Hgb 8.4 L (12.0-16.0) g/dL Hct 27.8 L (36.0-48.0) % MCV 70.4 L (81.0-99.0) fL MCH 21.3 L (26.7-34.0) pg MCHC 30.2 (29.9-35.2) g/dL RDW 19.9 H (11.0-15.0) % Plt Count 298 (150-450) 10^3/uL MPV 8.3 L (9.5-13.5) fL Neut % (Auto) 57.3 (43.0-75.0) % Lymph % (Auto) 32.0 (20.5-60.0) % [place] % (Auto) 8.1 (1.7-12.0) % Eos % (Auto) 1.6 (0.9-7.0) % Baso % (Auto) 0.5 (0.2-2.0) % Neut # (Auto) 3.3 (1.4-6.5) 10^3/uL Lymph # (Auto) 1.8 (1.2-3.8) 10^3/uL [place] # (Auto) 0.5 (0.3-0.8) 10^3/uL Eos # (Auto) 0.1 (0.0-0.7) 10^3/uL Baso # (Auto) 0.0 (0.0-0.1) 10^3/uL Abs Immat Gran (auto) 0.03 (0.00-0.03) 10^3/uL Imm/Tot Granulo (auto) 0.5 (0.0-0.5) % Sodium 137 (136-145) mmol/L Potassium 4.2 (3.5-5.1) mmol/L Chloride 101 (98-107) mmol/L Carbon Dioxide 22.5 (21.0-32.0) mmol/L Anion Gap 17.7 BUN 4.0 L (7.0-18.0) mg/dL Creatinine 0.85 (0.55-1.02) mg/dL Est GFR ( Amer) >60 (>=60 mL/min/1.73m^2) Est GFR (Non-Af Amer) >60 (>=60 mL/min/1.73m^2) BUN/Creatinine Ratio 4.7 Glucose 144 H (74-106) mg/dL Lactate 2.1 H (0.4-2.0) mmol/L Calcium 8.8 (8.5-10.1) mg/dL Urine Color Dk. orange (YELLOW) Urine Clarity Clear (CLEAR) Urine pH Color interference A (5.0-9.0) Ur Specific [place] <=1.005 A (1.005-1.025) Urine Protein Color interference A (NEG/TRACE) mg/dL Urine Glucose (UA) Color interference A (NEGATIVE) mg/dL Urine Ketones Color interference A (NEGATIVE) mg/dL Urine Occult Blood Color interference A (NEGATIVE) Urine Nitrite Color interference A (NEGATIVE) Urine Bilirubin Color interference A (NEGATIVE) Urine Urobilinogen Color interference A (0.2-1.0) EU/dL Ur Leukocyte Esterase Color interference A (NEGATIVE) Urine RBC 50-75 A (0-2) #/HPF Urine WBC 2-5 A (NONE SEEN) #/HPF Ur Squamous Epith Cells Moderate A (NONE/RARE) #/LPF Urine Crystals None seen (None Seen) #/HPF Urine Bacteria Small A (NONE SEEN) #/HPF Urine Casts None seen (NONE SEEN) #/LPF Urine Mucus None seen (NONE SEEN) Ur Culture Indicated? Yes Discharge Plan Discharge Chief Complaint: Urogenital-Female Clinical Impression: Hematuria Patient Disposition: Home, Self-Care Time of Disposition Decision: 19:00 Condition: Good Prescriptions / Home Meds: No Action lamotrigine 100 mg tablet 100 mg PO QDAY lorazepam 1 mg tablet 1 mg PO Q8H metoprolol succinate 50 mg tablet extended release 24 hr 50 mg PO Q12H omeprazole 40 mg capsule,delayed release(DR/EC) 40 mg PO .qhs oxycodone-acetaminophen 5-325 mg tablet 1 tab PO Q6H PRN (Reason: pain) dicyclomine 20 mg tablet 20 mg PO QID PRN (Reason: abdominal pain) Qty: 7 0RF ondansetron HCl 4 mg tablet 4 mg PO Q6H PRN (Reason: nausea and vomiting) Qty: 12 0RF ondansetron 4 mg tablet,disintegrating 4 mg PO Q6H PRN (Reason: nausea and vomiting) Qty: 20 0RF Print Language: Slovak Instructions: Hematuria (ED) Additional Instructions: Follow up with your urologist Referrals: Physician,Non-Staff, MD [Primary Care Provider] - 1 week Discharge Date/Time: 06/25/24 19:01
[2024-06-25] MEDS: ONDANSETRON 4 MG RAPDIS TABLET SL (18:23)
[2024-06-25 18:25] LABS: Basophils Percent Auto 0.5 % (0.2-2.0); Eosinophils Absolute Auto 0.1 10^3/uL (0.0-0.7); Eosinophils Percent Auto 1.6 % (0.9-7.0); Hematocrit 27.8 % (36.0-48.0); Hemoglobin 8.4 g/dL (12.0-16.0); Immature Granulocytes Abs Auto 0.03 10^3/uL (0.00-0.03); Immature Granulocytes Pct Auto 0.5 % (0.0-0.5); Lymphocytes Absolute Auto 1.8 10^3/uL (1.2-3.8); Mean Corpuscular HGB Conc 30.2 g/dL (29.9-35.2); Mean Corpuscular Hemoglobin 21.3 pg (26.7-34.0); Mean Corpuscular Volume 70.4 fL (81.0-99.0); Mean Platelet Volume 8.3 fL (9.5-13.5); Monocytes Absolute Auto 0.5 10^3/uL (0.3-0.8); Monocytes Percent Auto 8.1 % (1.7-12.0); Neutrophils Absolute Auto 3.3 10^3/uL (1.4-6.5); Neutrophils Percent Auto 57.3 % (43.0-75.0); Platelet Count 298 10^3/uL (150-450); Red Blood Count 3.95 10^6/uL (4.20-5.40); Red Cell Distribution Width 19.9 % (11.0-15.0); White Blood Count 5.7 10^3/uL (4.0-11.0)
[2024-06-25 18:34] LABS: Anion Gap 17.7; BUN Creatinine Ratio 4.7; Calcium 8.8 mg/dL (8.5-10.1); Carbon Dioxide 22.5 mmol/L (21.0-32.0); Chloride 101 mmol/L (98-107); Estimated GFR (African America >60 (>=60 mL/min/1.73m^2); Estimated GFR (Non-African Ame >60 (>=60 mL/min/1.73m^2); Glucose 144 mg/dL (74-106); Potassium 4.2 mmol/L (3.5-5.1); Sodium 137 mmol/L (136-145)
[2024-06-25 18:44] LABS: Lactate/Lactic Acid 2.1 mmol/L (0.4-2.0)
--- NOTE | 2024-06-25 19:05 | PC.NURSE ---
Pt called the keno writer/runner stating that she had not seen an NARRATIVE WRITER or a Dr but has seen the nurses. Pt sobbing on the phone. PA states that she had seen the pt and that the Dr is going in to talk with pt. Pay in to talk with pt. Pt told that she needs to follow up with the surgeon/urologist, there is really not much of an infection and that she has already had several CT scans over the past few months. Pt tells the keno writer/runner that she is on pyridium and the Dr/urologist had called in 4 tabs of Oxy for her to use but does not have any more. Pt encouraged to call her urologist and/or her family Dr. Pt states that she just wants to go home. Pt told that her discharge papers are coming. pt seen walking out before getting her paperwork.
--- NOTE | 2024-06-25 19:07 | PC.NURSE ---
c/o pelvic pain following recent cystoscopy at . patient states pain started today. noticed blood in urine and burning with urination. patient called surgeons nurse who told her to come to ER. patient recently seen at another hospital for similar symptoms.
== END 2024-06-25 19:01 | disposition home or self-care (01) ==
PROVIDERS: Physician Assistant; Emergency Provider Emergency Medicine
DX: R31.9 Hematuria, unspecified (principal); Z87.891 Personal history of nicotine dependence
CPT/HCPCS: 36415; 80048; 81001; 83605; 85025; 87086; 99284; Q0162

== ENCOUNTER 2024-08-08 17:02 | Emergency (ER) | payer OTHER, SELFPAY ==
[2024-08-08 17:14] VITALS: BP 156/73; PULSE 93; TEMP 37.1; O2SAT 98; BMI 45.2
--- NOTE | 2024-08-08 17:40 | ED_ITS ---
HPI HPI - General Adult General Chief complaint: Urogenital-Female Stated complaint: KIDNEY STONE Time Seen by Provider: 08/08/24 17:33 History of Present Illness HPI narrative: 44 year old female presents to the ED for pain to her left side. Reports nausea. She was evaluated at [facility] last month and diagnosed with a 4 mm stone in the lower pole of her left kidney. States she had a cystoscopy. States her pain increased today. She has been taking pyridium. Reports chills. Denies fever, emesis, diarrhea, SOB, dizziness. Related Data Home Medications ?Medication ?Instructions ?Recorded ?Confirmed lamotrigine 100 mg tablet 100 mg PO QDAY 04/08/24 06/10/24 lorazepam 1 mg tablet 1 mg PO Q8H 04/08/24 06/10/24 metoprolol succinate 50 mg 50 mg PO Q12H 04/08/24 06/10/24 tablet,extended release 24 hr omeprazole 40 mg capsule,delayed 40 mg PO .qhs 04/08/24 06/10/24 release oxycodone-acetaminophen 5 mg-325 1 tab PO Q6H PRN pain 04/08/24 06/10/24 mg tablet Previous Rx's ?Medication ?Instructions ?Recorded ondansetron HCl 4 mg tablet 4 mg PO Q6H PRN nausea and 10/30/23 vomiting #12 tabs ondansetron 4 mg disintegrating 4 mg PO Q6H PRN nausea and 05/10/24 tablet vomiting #20 tabs dicyclomine 20 mg tablet 20 mg PO QID PRN abdominal pain #7 06/10/24 tabs cephalexin 500 mg capsule 500 mg PO Q8H 7 days #21 caps 08/08/24 oxycodone-acetaminophen 5 mg-325 1 tab PO Q8H PRN pain 4 days #12 08/08/24 mg tablet (Percocet) tabs Allergies Allergy/AdvReac Type Severity Reaction Status Date / Time ketorolac (From Toradol) Allergy Anaphylaxis Verified 04/08/24 13:16 tramadol Allergy Anaphylaxis Verified 04/08/24 13:16 Opioid HPI Opioid Management Most Recent Opioid Data: Last Pain Scale 7 08/08/24 20:31 08/08/24 Review of Systems ROS Constitutional Reports: chills; Denies: fever Ears, nose, mouth, and throat Denies: throat pain Cardiovascular Denies: chest pain Respiratory Denies: shortness of breath Gastrointestinal Reports: abdominal pain and nausea; Denies: vomiting or diarrhea Genitourinary Reports: urinary frequency, urinary urgency and blood in urine; Denies: painful urination Musculoskeletal Reports: back pain; Denies: neck pain Integumentary/Breast Denies: rash Neurological Denies: headache PFSH PFSH Social History Smoking status: Former smoker Little interest or pleasure in doing things: not at all Feeling down, depressed, or hopeless: not at all Exam Constitutional Vital Signs, click to edit/add: Last Vital Signs Temp 98.8 F 08/08/24 17:14 Pulse 93 H 08/08/24 17:14 Resp 16 08/08/24 17:14 BP 156/73 H 08/08/24 17:14 Pulse Ox 98 08/08/24 17:14 O2 Del Method Room Air 08/08/24 17:14 Common normals: no apparent distress and oriented x3 General appearance: cooperative HENMT Common normals: normocephalic Mouth: lip normal Eye Common normals: conjunctivae normal and no scleral icterus Neck & C-Spine Common normals: supple Chest Chest: symmetrical chest wall rise Respiratory Common normals: normal respiratory effort and clear to auscultation bilaterally Effort & inspection: able to speak in complete sentences Cardio Common normals: regular rate and regular rhythm GI Common normals: Normal to inspection, nondistended, normoactive bowel sounds present and soft to palpation Palpation: soft and tender (Left side) Details: LLQ; no guarding and not rigid Bladder/kidney exam: CVA tenderness on the left; not on the right Neuro Common normals: oriented x3 and moves all extremities Sensorium/orientation: awake and alert Speech: speech normal Course Vital Signs Vital signs: Vital Signs Temperature 98.8 F 08/08/24 17:14 Pulse Rate 93 H 08/08/24 17:14 Respiratory Rate 16 08/08/24 17:14 Blood Pressure 156/73 H 08/08/24 17:14 Pulse Oximetry 98 08/08/24 17:14 Oxygen Delivery Method Room Air 08/08/24 17:14 Temperature 98.8 F 08/08/24 17:14 Pulse Rate 93 H 08/08/24 17:14 Respiratory Rate 16 08/08/24 17:14 Blood Pressure 156/73 H 08/08/24 17:14 Pulse Oximetry 98 08/08/24 17:14 Oxygen Delivery Method Room Air 08/08/24 17:14 Medical Decision Making MDM Narrative Medical decision making narrative: Urinalysis showed infection; culture was pending. CT scan showed no evidence of acute abdominal or pelvic process. WBC count was unremarkable. BUN and creatinine were unremarkable. Findings were discussed with the patient. She was given medication for her discomfort here. She declined Bentyl, stating she has it a home. She reported she also has Zofran at home. OARRS was reviewed. Prescriptions were provided for Percocet and Keflex. Follow up with pcp and urology for a recheck, further evaluation and treatment. Differential Diagnosis Differential Diagnosis: Kidney stone, UTI, diverticulitis, bowel obstruction Medical Records Medical records reviewed: Yes I reviewed the patient's medical records Lab Data Lab results reviewed: Yes I reviewed the patient's lab results Labs: Lab Results 08/08/24 Range/Units 17:32 WBC 6.8 (4.0-11.0) 10^3/uL RBC 4.31 (4.20-5.40) 10^6/uL Hgb 9.7 L (12.0-16.0) g/dL Hct 31.8 L (36.0-48.0) % MCV 73.8 L (81.0-99.0) fL MCH 22.5 L (26.7-34.0) pg MCHC 30.5 (29.9-35.2) g/dL RDW 20.8 H (11.0-15.0) % Plt Count 292 (150-450) 10^3/uL MPV 8.2 L (9.5-13.5) fL Neut % (Auto) 55.0 (43.0-75.0) % Lymph % (Auto) 33.0 (20.5-60.0) % [place] % (Auto) 8.6 (1.7-12.0) % Eos % (Auto) 2.1 (0.9-7.0) % Baso % (Auto) 1.0 (0.2-2.0) % Neut # (Auto) 3.7 (1.4-6.5) 10^3/uL Lymph # (Auto) 2.2 (1.2-3.8) 10^3/uL [place] # (Auto) 0.6 (0.3-0.8) 10^3/uL Eos # (Auto) 0.1 (0.0-0.7) 10^3/uL Baso # (Auto) 0.1 (0.0-0.1) 10^3/uL Abs Immat Gran (auto) 0.02 (0.00-0.03) 10^3/uL Imm/Tot Granulo (auto) 0.3 (0.0-0.5) % Sodium 138 (136-145) mmol/L Potassium 4.4 (3.5-5.1) mmol/L Chloride 102 (98-107) mmol/L Carbon Dioxide 27.6 (21.0-32.0) mmol/L Anion Gap 12.8 BUN 7.0 (7.0-18.0) mg/dL Creatinine 0.87 (0.55-1.02) mg/dL Est GFR ( Amer) >60 (>=60 mL/min/1.73m^2) Est GFR (Non-Af Amer) >60 (>=60 mL/min/1.73m^2) BUN/Creatinine Ratio 8.0 Glucose 112 H (74-106) mg/dL Calcium 8.7 (8.5-10.1) mg/dL Total Bilirubin 0.5 (0.2-1.0) mg/dL AST 17 (15-37) U/L ALT 29 (14-59) U/L Alkaline Phosphatase 88 (46-116) U/L Total Protein 7.7 (6.4-8.2) g/dL Albumin 3.5 (3.4-5.0) g/dL Globulin 4.2 g/dL Albumin/Globulin Ratio 0.8 Lipase 108.0 H (16.0-77.0) U/L Urine Color Dk. orange (YELLOW) Urine Clarity Sl cloudy (CLEAR) Urine pH Color interference A (5.0-9.0) Ur Specific [place] <=1.005 A (1.005-1.025) Urine Protein Color interference A (NEG/TRACE) mg/dL Urine Glucose (UA) Color interference A (NEGATIVE) mg/dL Urine Ketones Color interference A (NEGATIVE) mg/dL Urine Occult Blood Color interference A (NEGATIVE) Urine Nitrite Color interference A (NEGATIVE) Urine Bilirubin Color interference A (NEGATIVE) Urine Urobilinogen Color interference A (0.2-1.0) EU/dL Ur Leukocyte Esterase Negative (NEGATIVE) Urine RBC 50-75 A (0-2) #/HPF Urine WBC 2-5 A (NONE SEEN) #/HPF Ur Squamous Epith Cells Rare (NONE/RARE) #/LPF Urine Crystals None seen (None Seen) #/HPF Urine Bacteria Moderate A (NONE SEEN) #/HPF Urine Casts None seen (NONE SEEN) #/LPF Urine Mucus None seen (NONE SEEN) Ur Culture Indicated? Yes Urine HCG, Qual Negative (NEGATIVE) Imaging Data CT scan - abdomen: Attestation: I have reviewed the pertinent imaging results. Radiologist's impression: ITS Impressions Abdomen/Pelvis CT 08/08/24 18:34 Impression: No evidence of acute abdominal or pelvic process. No CT findings to explain patient's abdominal pain. Electronically authenticated by: FUAD LOPEZ Date: 08/08/2024 20:23 Discharge Plan Discharge Chief Complaint: Urogenital-Female Clinical Impression: Left flank pain, UTI (urinary tract infection) Patient Disposition: Home, Self-Care Time of Disposition Decision: 20:34 Condition: Good Mode of Transportation: Private Vehicle Prescriptions / Home Meds: New cephalexin 500 mg capsule 500 mg PO Q8H 7 Days Qty: 21 0RF oxycodone-acetaminophen [Percocet] 5-325 mg tablet 1 tab PO Q8H PRN (Reason: pain) 4 Days Qty: 12 0RF No Action lamotrigine 100 mg tablet 100 mg PO QDAY lorazepam 1 mg tablet 1 mg PO Q8H metoprolol succinate 50 mg tablet extended release 24 hr 50 mg PO Q12H omeprazole 40 mg capsule,delayed release(DR/EC) 40 mg PO .qhs oxycodone-acetaminophen 5-325 mg tablet 1 tab PO Q6H PRN (Reason: pain) dicyclomine 20 mg tablet 20 mg PO QID PRN (Reason: abdominal pain) Qty: 7 0RF ondansetron HCl 4 mg tablet 4 mg PO Q6H PRN (Reason: nausea and vomiting) Qty: 12 0RF ondansetron 4 mg tablet,disintegrating 4 mg PO Q6H PRN (Reason: nausea and vomiting) Qty: 20 0RF Print Language: Kyrgyz Instructions: Urinary Tract Infection in Women (DC), Abdominal Pain (ED) Additional Instructions: Return to the ER for worsening symptoms. Referrals: Physician,Non-Staff, MD [Primary Care Provider] - 1 week
[2024-08-08 17:53] LABS: Basophils Absolute Auto 0.1 10^3/uL (0.0-0.1); Eosinophils Absolute Auto 0.1 10^3/uL (0.0-0.7); Eosinophils Percent Auto 2.1 % (0.9-7.0); Hematocrit 31.8 % (36.0-48.0); Hemoglobin 9.7 g/dL (12.0-16.0); Immature Granulocytes Abs Auto 0.02 10^3/uL (0.00-0.03); Immature Granulocytes Pct Auto 0.3 % (0.0-0.5); Lymphocytes Absolute Auto 2.2 10^3/uL (1.2-3.8); Mean Corpuscular HGB Conc 30.5 g/dL (29.9-35.2); Mean Corpuscular Hemoglobin 22.5 pg (26.7-34.0); Mean Corpuscular Volume 73.8 fL (81.0-99.0); Mean Platelet Volume 8.2 fL (9.5-13.5); Monocytes Absolute Auto 0.6 10^3/uL (0.3-0.8); Monocytes Percent Auto 8.6 % (1.7-12.0); Neutrophils Absolute Auto 3.7 10^3/uL (1.4-6.5); Platelet Count 292 10^3/uL (150-450); Red Blood Count 4.31 10^6/uL (4.20-5.40); Red Cell Distribution Width 20.8 % (11.0-15.0); White Blood Count 6.8 10^3/uL (4.0-11.0)
[2024-08-08] MEDS: ONDANSETRON PF 4 MG/2 ML VIAL IV (17:53)
[2024-08-08] MEDS: HYDROMORPHONE HCL 0.5 MG/0.5 ML SYRINGE IV ×3 (17:53→20:31)
[2024-08-08 18:08] LABS: Clarity Urine SL CLOUDY (CLEAR); Color Urine DK. ORANGE (YELLOW); Leukocyte Esterase Urine NEGATIVE (NEGATIVE); Specific Gravity Urine <=1.005 (1.005-1.025)
[2024-08-08 18:10] LABS: Protein Urine COLOR INTERFERENCE mg/dL (NEG/TRACE); Urine Microscopic Indicated YES; pH Urine COLOR INTERFERENCE (5.0-9.0)
[2024-08-08 18:11] LABS: Bilirubin Urine COLOR INTERFERENCE (NEGATIVE); Blood Urine COLOR INTERFERENCE (NEGATIVE); Glucose Urine UA COLOR INTERFERENCE mg/dL (NEGATIVE); Ketones Urine COLOR INTERFERENCE mg/dL (NEGATIVE); Nitrite Urine COLOR INTERFERENCE (NEGATIVE)
[2024-08-08 18:12] LABS: HCG Qualitative Urine* NEGATIVE (NEGATIVE); Internal Control Within Normal Limits; Urobilinogen Urine COLOR INTERFERENCE EU/dL (0.2-1.0)
[2024-08-08 18:14] LABS: Alanine Aminotransferase 29 U/L (14-59); Albumin Globulin Ratio 0.8; Albumin Level 3.5 g/dL (3.4-5.0); Alkaline Phosphatase 88 U/L (46-116); Anion Gap 12.8; Aspartate Amino Transferase 17 U/L (15-37); Bilirubin Total 0.5 mg/dL (0.2-1.0); Calcium 8.7 mg/dL (8.5-10.1); Carbon Dioxide 27.6 mmol/L (21.0-32.0); Chloride 102 mmol/L (98-107); Estimated GFR (African America >60 (>=60 mL/min/1.73m^2); Estimated GFR (Non-African Ame >60 (>=60 mL/min/1.73m^2); Globulin 4.2 g/dL; Glucose 112 mg/dL (74-106); Potassium 4.4 mmol/L (3.5-5.1); Sodium 138 mmol/L (136-145); Total Protein 7.7 g/dL (6.4-8.2)
[2024-08-08 18:26] LABS: Bacteria Urine MODERATE #/HPF (NONE SEEN); Cast Seen? NONE SEEN #/LPF (NONE SEEN); Crystals Seen? None Seen #/HPF (None Seen); Mucus Urine NONE SEEN (NONE SEEN); RBC Urine 50-75 #/HPF (0-2); Squamous Epithelial Cell Urine RARE #/LPF (NONE/RARE)
[2024-08-08 18:27] LABS: Urine Culture Indicated YES
--- NOTE | 2024-08-08 18:34 | CT_ITS ---
The [address] [address] Patient Name: BRIE DUMONT MRN: [id number] date: 1980 Sex: F Assigned Patient Location: ER Current Patient Location: ER Accession/Order Number: [id number] Exam Date: 08/08/2024 19:00 Report Date: 08/08/2024 20:23 At the request of: ROSA STEINER Procedure: CT abdomen pelvis wo con Indication: Left flank pain. Comparison: 06/10/2024 exam Procedure: Axial images were made from the diaphragms through the symphysis pubis. No oral contrast or intravenous contrast was given. Dose reduction techniques were achieved by using automated exposure control and/or adjustment of mA and/or kV according to patient size and/or use of iterative reconstruction technique. Findings: Liver/Biliary System: No liver masses are seen. No intra or extrahepatic biliary dilatation. Status postcholecystectomy. Pancreas/Spleen: No evidence of acute pancreatitis. Pancreatic duct is not dilated. No splenomegaly. Kidneys/Adrenals: No renal or ureteral stones are seen. No hydronephrosis or hydroureter bilaterally. No adrenal nodules. Aorta/Vessels: No evidence of aortic aneurysm. Evaluation of vessels is limited due to lack of IV contrast. Bowel/Fluid/Nodes: No bowel dilatation or bowel wall thickening. No evidence of bowel obstruction. Appendix was not identified, however no secondary signs of appendicitis present. No adenopathy. No ascites or fluid collections. Lung bases: Clear. Other findings: No aggressive osseous lesions are seen. Pelvis: No pelvic masses or adenopathy. Status post hysterectomy. Bladder grossly unremarkable. Other Findings: No aggressive osseous lesions are seen. CT/CT abdomen pelvis wo con Impression: No evidence of acute abdominal or pelvic process. No CT findings to explain patient's abdominal pain. Electronically authenticated by: FUAD LOPEZ Date: 08/08/2024 20:23
[2024-08-08] MEDS: CEFTRIAXONE 1,000 MG in 0.9 % SODIUM CHLORIDE 50 ML 100 MG IV (19:23)
[2024-08-08 21:01] VITALS: BP 110/60; PULSE 84; O2SAT 96
== END 2024-08-08 21:04 | disposition home or self-care (01) ==
PROVIDERS: Nurse Practitioner Family; Emergency Provider Emergency Medicine
DX: N39.0 Urinary tract infection, site not specified (principal); R10.9 Unspecified abdominal pain; Z87.891 Personal history of nicotine dependence; Z87.442 Personal history of urinary calculi
CPT/HCPCS: 36415; 74176; 80053; 81001; 83690; 84703; 85025; 87086; 87186; 96365; 96375; 96376; 99285; J0696; J1171; J2405

== ENCOUNTER 2024-08-15 17:13 | Emergency (ER) | payer OTHER, SELFPAY ==
[2024-08-15 17:23] VITALS: BP 165/81; PULSE 112; TEMP 36.6; O2SAT 99; BMI 45.2
--- NOTE | 2024-08-15 17:31 | ED.GENADUL1 ---
HPI HPI - General Adult General Chief complaint: Urogenital-Female Stated complaint: back pain Time Seen by Provider: 08/15/24 17:23 Source: patient Mode of arrival: walk-in History of Present Illness HPI narrative: Patient is a 44-year-old female who presents to the emergency department for reevaluation of left flank pain. Patient was seen in this emergency department on 08/08/2024. She had an unremarkable workup including a CAT scan. She was placed on Keflex which she has been taking for the last week. She was contacted 2 days ago by her nurse practitioner stating that her urine culture was resistant to the Keflex and she was switched to Cipro. She states she has been taking the Cipro 2 days now and her symptoms are worsening with her pain changing and radiating more to the left flank. She has an extensive history of UTI, kidney stones, hematuria. She has been seen in this emergency department multiple times in the past for the symptoms. She has had no fevers, vomiting. She states she continues to have blood in her urine. Related Data Home Medications ?Medication ?Instructions ?Recorded ?Confirmed lamotrigine 100 mg tablet 100 mg PO QDAY 04/08/24 08/15/24 lorazepam 1 mg tablet 1 mg PO Q8H 04/08/24 08/15/24 metoprolol succinate 50 mg 50 mg PO Q12H 04/08/24 08/15/24 tablet,extended release 24 hr omeprazole 40 mg capsule,delayed 40 mg PO .qhs 04/08/24 08/15/24 release oxycodone-acetaminophen 5 mg-325 1 tab PO Q6H PRN pain 04/08/24 06/10/24 mg tablet Previous Rx's ?Medication ?Instructions ?Recorded ondansetron HCl 4 mg tablet 4 mg PO Q6H PRN nausea and 10/30/23 vomiting #12 tabs ondansetron 4 mg disintegrating 4 mg PO Q6H PRN nausea and 05/10/24 tablet vomiting #20 tabs cephalexin 500 mg capsule 500 mg PO Q8H 7 days #21 caps 08/08/24 oxycodone-acetaminophen 5 mg-325 1 tab PO Q8H PRN pain 4 days #12 08/08/24 mg tablet (Percocet) tabs ciprofloxacin HCl 500 mg tablet 500 mg PO BID #10 tabs 08/14/24 (Cipro) Allergies Allergy/AdvReac Type Severity Reaction Status Date / Time ketorolac (From Toradol) Allergy Anaphylaxis Verified 08/15/24 17:23 tramadol Allergy Anaphylaxis Verified 08/15/24 17:23 Opioid HPI Opioid Management Most Recent Opioid Data: Last Pain Scale 10 08/15/24 18:31 08/15/24 Last MAR Pain Assessment 08/15/24 18:31 Review of Systems ROS Constitutional Denies: fever or chills Ears, nose, mouth, and throat Denies: throat pain Cardiovascular Denies: chest pain Respiratory Denies: shortness of breath or cough Gastrointestinal Reports: nausea; Denies: abdominal pain, vomiting or diarrhea Genitourinary Reports: urinary urgency and blood in urine Musculoskeletal Reports: back pain; Denies: neck pain Integumentary/Breast Denies: rash Neurological Denies: numbness in extremities or weakness in extremities Hematologic/Lymphatic Denies: easy bruising or easy bleeding PFSH PFSH Social History Smoking status: Former smoker Little interest or pleasure in doing things: not at all Feeling down, depressed, or hopeless: not at all Exam Narrative Exam Narrative: Gen.: Awake, alert, in no distress Head: Normocephalic, atraumatic ENT: Moist mucous membranes Respiratory: No respiratory distress, lungs clear bilaterally Cardio: Regular rate and rhythm Gastrointestinal: Abdomen is soft, nondistended and nontender to palpation Extremities: Moves extremities equally Psych: Normal mood and affect Neuro: No focal neuro deficit Skin: Warm, dry, intact Constitutional Vital Signs, click to edit/add: Last Vital Signs Temp 98 F 08/15/24 17:23 Pulse 112 H 08/15/24 17:23 Resp 18 08/15/24 17:23 BP 165/81 H 08/15/24 17:23 Pulse Ox 99 08/15/24 17:23 O2 Del Method Room Air 08/15/24 17:23 Course Vital Signs Vital signs: Vital Signs Temperature 98 F 08/15/24 17:23 Pulse Rate 112 H 08/15/24 17:23 Respiratory Rate 18 08/15/24 17:23 Blood Pressure 165/81 H 08/15/24 17:23 Pulse Oximetry 99 08/15/24 17:23 Oxygen Delivery Method Room Air 08/15/24 17:23 Temperature 98 F 08/15/24 17:23 Pulse Rate 112 H 08/15/24 17:23 Respiratory Rate 18 08/15/24 17:23 Blood Pressure 165/81 H 08/15/24 17:23 Pulse Oximetry 99 08/15/24 17:23 Oxygen Delivery Method Room Air 08/15/24 17:23 Medical Decision Making MDM Narrative Medical decision making narrative: Laboratory studies reviewed and noted showing stable chronic anemia, normal kidney function and hematuria which appears to be present on all of the patient's previous urine specimens. She is known to urology for her chronic hematuria. Specimen was contaminated but does show bacteria and the patient does have a positive urine culture. She is on the appropriate antibiotic for this. She was medicated for pain in the ER. She is noted to be allergic to Toradol and tramadol. OARRS report was reviewed showing that the patient has had 5 prescriptions of Percocet since 07/28/2024. She has gotten all of these prescriptions from different providers in different areas in [place]. CT was repeated today with IV contrast to rule out pyelonephritis, there is no evidence of a recently passed kidney stone as the patient stated there was on her last CT scan. There is also no evidence of acute process today. Patient was offered a muscle relaxant for home, I do not feel she requires additional Percocet at this time and feel it is inappropriate to continue to prescribe narcotics for her. She was encouraged to finish her Cipro, she was given a muscle relaxant and Zofran for home. Return to the ER if symptoms change or worsen patient was reevaluated by attending physician prior to discharge. SHARED APC VISIT, PHYSICIAN ATTESTATION: [id number] I performed a substantive part of the MDM during the patient?s E/M visit. I personally evaluated and examined the patient. I personally made or approved the documented management plan and acknowledge its risk of complications. Medical Records Medical records reviewed: Yes I reviewed the patient's medical records Lab Data Lab results reviewed: Yes I reviewed the patient's lab results Labs: Lab Results 08/15/24 08/15/24 Range/Units 18:25 19:10 WBC 5.1 (4.0-11.0) 10^3/uL RBC 3.99 L (4.20-5.40) 10^6/uL Hgb 8.8 L (12.0-16.0) g/dL Hct 29.6 L (36.0-48.0) % MCV 74.2 L (81.0-99.0) fL MCH 22.1 L (26.7-34.0) pg MCHC 29.7 L (29.9-35.2) g/dL RDW 20.1 H (11.0-15.0) % Plt Count 316 (150-450) 10^3/uL MPV 8.4 L (9.5-13.5) fL Neut % (Auto) 57.9 (43.0-75.0) % Lymph % (Auto) 30.6 (20.5-60.0) % [place] % (Auto) 8.1 (1.7-12.0) % Eos % (Auto) 2.4 (0.9-7.0) % Baso % (Auto) 0.6 (0.2-2.0) % Neut # (Auto) 3.0 (1.4-6.5) 10^3/uL Lymph # (Auto) 1.6 (1.2-3.8) 10^3/uL [place] # (Auto) 0.4 (0.3-0.8) 10^3/uL Eos # (Auto) 0.1 (0.0-0.7) 10^3/uL Baso # (Auto) 0.0 (0.0-0.1) 10^3/uL Abs Immat Gran (auto) 0.02 (0.00-0.03) 10^3/uL Imm/Tot Granulo (auto) 0.4 (0.0-0.5) % Sodium 140 (136-145) mmol/L Potassium 4.1 (3.5-5.1) mmol/L Chloride 104 (98-107) mmol/L Carbon Dioxide 27.8 (21.0-32.0) mmol/L Anion Gap 12.3 BUN 6.0 L (7.0-18.0) mg/dL Creatinine 0.82 (0.55-1.02) mg/dL Est GFR ( Amer) >60 (>=60 mL/min/1.73m^2) Est GFR (Non-Af Amer) >60 (>=60 mL/min/1.73m^2) BUN/Creatinine Ratio 7.3 Glucose 143 H (74-106) mg/dL Lactate 1.9 (0.4-2.0) mmol/L Calcium 8.5 (8.5-10.1) mg/dL Total Bilirubin 0.4 (0.2-1.0) mg/dL AST 17 (15-37) U/L ALT 23 (14-59) U/L Alkaline Phosphatase 82 (46-116) U/L Total Protein 7.1 (6.4-8.2) g/dL Albumin 3.1 L (3.4-5.0) g/dL Globulin 4.0 g/dL Albumin/Globulin Ratio 0.8 Urine Color Dk. orange (YELLOW) Urine Clarity Cloudy A (CLEAR) Urine pH Color interference A (5.0-9.0) Ur Specific [place] 1.025 (1.005-1.025) Urine Protein Color interference A (NEG/TRACE) mg/dL Urine Glucose (UA) Color interference A (NEGATIVE) mg/dL Urine Ketones Color interference A (NEGATIVE) mg/dL Urine Occult Blood Color interference A (NEGATIVE) Urine Nitrite Color interference A (NEGATIVE) Urine Bilirubin Color interference A (NEGATIVE) Urine Urobilinogen Color interference A (0.2-1.0) EU/dL Ur Leukocyte Esterase Color interference A (NEGATIVE) Urine RBC >100 A (0-2) #/HPF Urine WBC 0-2 A (NONE SEEN) #/HPF Ur Squamous Epith Cells Many A (NONE/RARE) #/LPF Urine Crystals None seen (None Seen) #/HPF Urine Bacteria Large A (NONE SEEN) #/HPF Urine Casts None seen (NONE SEEN) #/LPF Urine Mucus None seen (NONE SEEN) Ur Culture Indicated? Yes Imaging Data CT scan - abdomen: Attestation: I have reviewed the pertinent imaging results. Radiologist's impression: ITS Impressions Abdomen/Pelvis CT 08/15/24 19:00 Impression: 1. Normal symmetrical nephrograms. No evidence of pyelonephritis on CT. No renal, ureteral or bladder stones are seen. No hydronephrosis or hydroureter bilaterally. Normal excretion of both kidneys with no filling defects seen in the bilateral pelvicalyceal systems or bilateral ureters. 2. No evidence of acute abdominal or pelvic process. 3. Mild diffuse fatty infiltration of the liver. Mild colonic diverticulosis. Status post cholecystectomy and hysterectomy. Electronically authenticated by: FUAD LOPEZ Date: 08/15/2024 19:41 Discharge Plan Discharge Chief Complaint: Urogenital-Female Clinical Impression: Left flank pain, Hematuria, UTI (urinary tract infection) Patient Disposition: Home, Self-Care Time of Disposition Decision: 19:59 Condition: Good Prescriptions / Home Meds: No Action lamotrigine 100 mg tablet 100 mg PO QDAY lorazepam 1 mg tablet 1 mg PO Q8H metoprolol succinate 50 mg tablet extended release 24 hr 50 mg PO Q12H omeprazole 40 mg capsule,delayed release(DR/EC) 40 mg PO .qhs oxycodone-acetaminophen 5-325 mg tablet 1 tab PO Q6H PRN (Reason: pain) ondansetron HCl 4 mg tablet 4 mg PO Q6H PRN (Reason: nausea and vomiting) Qty: 12 0RF ondansetron 4 mg tablet,disintegrating 4 mg PO Q6H PRN (Reason: nausea and vomiting) Qty: 20 0RF cephalexin 500 mg capsule 500 mg PO Q8H 7 Days Qty: 21 0RF oxycodone-acetaminophen [Percocet] 5-325 mg tablet 1 tab PO Q8H PRN (Reason: pain) 4 Days Qty: 12 0RF ciprofloxacin HCl [Cipro] 500 mg tablet 500 mg PO BID Qty: 10 0RF Print Language: Icelandic Instructions: Flank Pain (ED) Referrals: Physician,Non-Staff, MD [Primary Care Provider] - 1 week
[2024-08-15] MEDS: 0.9 % SODIUM CHLORIDE 1,000 ML 999 ML IV (18:28)
[2024-08-15] MEDS: ONDANSETRON PF 4 MG/2 ML VIAL IV (18:29)
[2024-08-15] MEDS: MORPHINE SULFATE 4 MG/ML VIAL IV (18:31)
[2024-08-15 18:40] LABS: Basophils Percent Auto 0.6 % (0.2-2.0); Eosinophils Absolute Auto 0.1 10^3/uL (0.0-0.7); Eosinophils Percent Auto 2.4 % (0.9-7.0); Hematocrit 29.6 % (36.0-48.0); Hemoglobin 8.8 g/dL (12.0-16.0); Immature Granulocytes Abs Auto 0.02 10^3/uL (0.00-0.03); Immature Granulocytes Pct Auto 0.4 % (0.0-0.5); Lymphocytes Absolute Auto 1.6 10^3/uL (1.2-3.8); Lymphocytes Percent Auto 30.6 % (20.5-60.0); Mean Corpuscular HGB Conc 29.7 g/dL (29.9-35.2); Mean Corpuscular Hemoglobin 22.1 pg (26.7-34.0); Mean Corpuscular Volume 74.2 fL (81.0-99.0); Mean Platelet Volume 8.4 fL (9.5-13.5); Monocytes Absolute Auto 0.4 10^3/uL (0.3-0.8); Monocytes Percent Auto 8.1 % (1.7-12.0); Neutrophils Percent Auto 57.9 % (43.0-75.0); Platelet Count 316 10^3/uL (150-450); Red Blood Count 3.99 10^6/uL (4.20-5.40); Red Cell Distribution Width 20.1 % (11.0-15.0); White Blood Count 5.1 10^3/uL (4.0-11.0)
[2024-08-15 18:53] LABS: Alanine Aminotransferase 23 U/L (14-59); Albumin Globulin Ratio 0.8; Albumin Level 3.1 g/dL (3.4-5.0); Alkaline Phosphatase 82 U/L (46-116); Anion Gap 12.3; Aspartate Amino Transferase 17 U/L (15-37); BUN Creatinine Ratio 7.3; Bilirubin Total 0.4 mg/dL (0.2-1.0); Calcium 8.5 mg/dL (8.5-10.1); Carbon Dioxide 27.8 mmol/L (21.0-32.0); Chloride 104 mmol/L (98-107); Estimated GFR (African America >60 (>=60 mL/min/1.73m^2); Estimated GFR (Non-African Ame >60 (>=60 mL/min/1.73m^2); Glucose 143 mg/dL (74-106); Potassium 4.1 mmol/L (3.5-5.1); Sodium 140 mmol/L (136-145); Total Protein 7.1 g/dL (6.4-8.2)
[2024-08-15 18:55] LABS: Lactate/Lactic Acid 1.9 mmol/L (0.4-2.0)
--- NOTE | 2024-08-15 19:00 | CT_ITS ---
[address] [address] Patient Name: BRIE DUMONT MRN: [id number] date: 1980 Sex: F Assigned Patient Location: ER Current Patient Location: [facility] Accession/Order Number: [id number] Exam Date: 08/15/2024 18:53 Report Date: 08/15/2024 19:41 At the request of: MARIA ISABEL HOPE Procedure: CT abdomen pelvis w con Indication: Left-sided pyelonephritis. Comparison: 08/08/2024 exam Procedure: Axial images were made from the diaphragms through the symphysis pubis. No oral contrast was given prior to scanning. 100 mL Omnipaque 300 Intravenous contrast was given. Dose reduction techniques were achieved by using automated exposure control and/or adjustment of mA and/or kV according to patient size and/or use of iterative reconstruction technique. Findings: Liver/Biliary System: Mild diffuse fatty infiltration of the liver. No liver masses. No intra or extrahepatic biliary dilatation. Status post cholecystectomy. Pancreas/Spleen: No evidence of acute pancreatitis. Pancreatic duct is not dilated. No pancreatic masses. No splenomegaly or splenic lesions. Kidneys/Adrenals: Normal symmetrical nephrograms. No evidence of pyelonephritis on CT. No renal masses. No renal or ureteral stones are seen. No hydronephrosis or hydroureter bilaterally. Normal excretion of both kidneys with no filling defects seen in the bilateral pelvicalyceal systems or bilateral ureters. No adrenal nodules. Aorta/Vessels: No evidence of aortic aneurysm. Patent IVC, renal veins, hepatic veins and portal venous system. Bowel/Fluid/Nodes: No bowel dilatation or bowel wall thickening. No evidence of bowel obstruction. Appendix was not identified, however no secondary signs of appendicitis present. Mild colonic diverticulosis with no evidence of diverticulitis. No ascites or fluid collections. No adenopathy. Lung bases: Clear. Other findings: No aggressive osseous lesions are seen. Pelvis: No pelvic masses or adenopathy. No free fluid seen in the pelvis. Status post hysterectomy. Bladder and adnexa are unremarkable. Other Findings: No aggressive osseous lesions are seen. CT/CT abdomen pelvis w con Impression: 1. Normal symmetrical nephrograms. No evidence of pyelonephritis on CT. No renal, ureteral or bladder stones are seen. No hydronephrosis or hydroureter bilaterally. Normal excretion of both kidneys with no filling defects seen in the bilateral pelvicalyceal systems or bilateral ureters. 2. No evidence of acute abdominal or pelvic process. 3. Mild diffuse fatty infiltration of the liver. Mild colonic diverticulosis. Status post cholecystectomy and hysterectomy. Electronically authenticated by: FUAD LOPEZ Date: 08/15/2024 19:41
[2024-08-15 19:25] LABS: Clarity Urine CLOUDY (CLEAR); Color Urine DK. ORANGE (YELLOW); Specific Gravity Urine 1.025 (1.005-1.025)
[2024-08-15 19:32] LABS: Bilirubin Urine COLOR INTERFERENCE (NEGATIVE); Blood Urine COLOR INTERFERENCE (NEGATIVE); Glucose Urine UA COLOR INTERFERENCE mg/dL (NEGATIVE); Ketones Urine COLOR INTERFERENCE mg/dL (NEGATIVE); Leukocyte Esterase Urine COLOR INTERFERENCE (NEGATIVE); Nitrite Urine COLOR INTERFERENCE (NEGATIVE); Protein Urine COLOR INTERFERENCE mg/dL (NEG/TRACE); Urine Microscopic Indicated YES; Urobilinogen Urine COLOR INTERFERENCE EU/dL (0.2-1.0); pH Urine COLOR INTERFERENCE (5.0-9.0)
[2024-08-15 19:46] LABS: Bacteria Urine LARGE #/HPF (NONE SEEN); RBC Urine >100 #/HPF (0-2); WBC Urine 0-2 #/HPF (NONE SEEN)
[2024-08-15 19:48] LABS: Cast Seen? NONE SEEN #/LPF (NONE SEEN); Crystals Seen? None Seen #/HPF (None Seen); Mucus Urine NONE SEEN (NONE SEEN); Squamous Epithelial Cell Urine MANY #/LPF (NONE/RARE); Urine Culture Indicated YES
[2024-08-15 19:50] VITALS: BP 152/66; PULSE 99; O2SAT 98
== END 2024-08-15 20:09 | disposition home or self-care (01) ==
PROVIDERS: Physician Assistant; Emergency Provider Emergency Medicine
DX: N39.0 Urinary tract infection, site not specified (principal); R31.9 Hematuria, unspecified; R10.9 Unspecified abdominal pain; Z90.49 Acquired absence of other specified parts of digestive tract; Z87.440 Personal history of urinary (tract) infections; Z87.442 Personal history of urinary calculi; Z87.891 Personal history of nicotine dependence
CPT/HCPCS: 36415; 74177; 80053; 81001; 83605; 85025; 87040; 87086; 87150; 87186; 96374; 96375; 99285; J2270; J2405; Q9967

== ENCOUNTER 2025-02-23 16:01 | Emergency (ER) | payer OTHER, SELFPAY ==
[2025-02-23 16:04] VITALS: BP 156/92; PULSE 95; TEMP 36.6; O2SAT 98; BMI 53.3
--- NOTE | 2025-02-23 16:12 | CT_ITS ---
The [address] [address] Patient Name: BRIE DUMONT MRN: [id number] date: 1980 Sex: F Assigned Patient Location: ER Current Patient Location: ER Accession/Order Number: [id number] Exam Date: 02/23/2025 17:15 Report Date: 02/23/2025 17:20 At the request of: POONAM MORRISON MD Procedure: CT abdomen pelvis wo con CT ABDOMEN AND PELVIS WITHOUT INTRAVENOUS CONTRAST: CLINICAL HISTORY: left flank pain, r/o stone hematuria, pain with urination COMPARISON: 08/15/2024 TECHNIQUE: Spiral images were obtained through the abdomen and pelvis without intravenous contrast. This CT exam was performed using one or more following dose reduction techniques: Automated exposure control, adjustment of the mA and/or kV according to patient size, or use of iterative reconstruction technique. FINDINGS: Lung Bases: [Linear atelectasis and or scarring. Organs:Gallbladder is absent. Otherwise the liver, spleen, adrenals, kidneys, and pancreas are unremarkable. No evidence of nephrolithiasis. No hydronephrosis.[ GI: Mild retained stool. No bowel obstruction. Appendix absent. No pericecal inflammatory changes.[ Pelvis:[Bladder unremarkable. Uterus absent. No adnexal mass.] Peritoneum/Retroperitoneum:No free air or free fluid. Aorta unremarkable caliber[ Abd wall/Bones:Similar nonspecific skin thickening infraumbilical soft tissues. No suspicious osseous lesion.[ CT/CT abdomen pelvis wo con IMPRESSION: Negative for nephrolithiasis or nonobstructive uropathy. No evidence acute inflammatory process or bowel obstruction. Impression dictated by: Lance Em M.D. 02/23/2025 5:20 PM Dictation Location: [place] [address] Electronically authenticated by: [id number] Y Date: 02/23/2025 17:20
--- NOTE | 2025-02-23 16:12 | ED.GENADUL1 ---
HPI HPI - General Adult General Chief complaint: Abdominal Pain Stated complaint: PAIN IN BACK & SIDE, RECENT UTI Time Seen by Provider: 02/23/25 16:04 Mode of arrival: walk-in Limitations: no limitations History of Present Illness HPI narrative: 44-year-old female presents to the emergency department for a chief complaint of left flank pain and dysuria. She has been on Keflex for 4 days, prescribed by her urologist. She is also had kidney stones before and has pain somewhat similar to previous kidney stone pain. No fever. She has been nauseous but no vomiting and there is been no injury. Related Data Home Medications ?Medication ?Instructions ?Recorded ?Confirmed lamotrigine 100 mg tablet 100 mg PO QDAY 04/08/24 08/15/24 lorazepam 1 mg tablet 1 mg PO Q8H 04/08/24 08/15/24 metoprolol succinate 50 mg 50 mg PO Q12H 04/08/24 08/15/24 tablet,extended release 24 hr omeprazole 40 mg capsule,delayed 40 mg PO .qhs 04/08/24 08/15/24 release oxycodone-acetaminophen 5 mg-325 1 tab PO Q6H PRN pain 04/08/24 06/10/24 mg tablet Previous Rx's ?Medication ?Instructions ?Recorded ondansetron HCl 4 mg tablet 4 mg PO Q6H PRN nausea and 10/30/23 vomiting #12 tabs ondansetron 4 mg disintegrating 4 mg PO Q6H PRN nausea and 05/10/24 tablet vomiting #20 tabs cephalexin 500 mg capsule 500 mg PO Q8H 7 days #21 caps 08/08/24 oxycodone-acetaminophen 5 mg-325 1 tab PO Q8H PRN pain 4 days #12 08/08/24 mg tablet (Percocet) tabs ciprofloxacin HCl 500 mg tablet 500 mg PO BID #10 tabs 08/14/24 (Cipro) Allergies Allergy/AdvReac Type Severity Reaction Status Date / Time ketorolac (From Toradol) Allergy Anaphylaxis Verified 08/15/24 17:23 tramadol Allergy Anaphylaxis Verified 08/15/24 17:23 Opioid HPI Opioid Management Most Recent Opioid Data: Last Pain Scale 8 Today, 16:04 PFSH PFSH Social History Smoking status: Former smoker Little interest or pleasure in doing things: not at all Feeling down, depressed, or hopeless: not at all Exam Constitutional Vital Signs, click to edit/add: Last Vital Signs Temp 97.8 F 02/23/25 16:04 Pulse 95 H 02/23/25 16:04 Resp 18 02/23/25 16:04 BP 156/92 H 02/23/25 16:04 Pulse Ox 98 02/23/25 16:04 O2 Del Method Room Air 02/23/25 16:04 Course Vital Signs Vital signs: Vital Signs Temperature 97.8 F 02/23/25 16:04 Pulse Rate 95 H 02/23/25 16:04 Respiratory Rate 18 02/23/25 16:04 Blood Pressure 156/92 H 02/23/25 16:04 Pulse Oximetry 98 02/23/25 16:04 Oxygen Delivery Method Room Air 02/23/25 16:04 Temperature 97.8 F 02/23/25 16:04 Pulse Rate 95 H 02/23/25 16:04 Respiratory Rate 18 02/23/25 16:04 Blood Pressure 156/92 H 02/23/25 16:04 Pulse Oximetry 98 02/23/25 16:04 Oxygen Delivery Method Room Air 02/23/25 16:04 Medical Decision Making MDM Narrative Medical decision making narrative: No evidence of kidney stone on CT. She has some blood in her urine but no white blood cells and the urine culture is pending. She will be prescribed pain medication and she is already on an antibiotic. Treatment diagnosis and follow-up were discussed with the patient Differential Diagnosis Differential Diagnosis: Muscle pain, kidney stone, UTI, pyelonephritis Lab Data Lab results reviewed: Yes I reviewed the patient's lab results Labs: Lab Results 02/23/25 02/23/25 Range/Units 16:08 16:44 WBC 5.1 (4.0-11.0) 10^3/uL RBC 3.92 L (4.20-5.40) 10^6/uL Hgb 8.8 L (12.0-16.0) g/dL Hct 29.4 L (36.0-48.0) % MCV 75.0 L (81.0-99.0) fL MCH 22.4 L (26.7-34.0) pg MCHC 29.9 (29.9-35.2) g/dL RDW 25.8 H (11.0-15.0) % Plt Count 215 (150-450) 10^3/uL MPV 8.9 L (9.5-13.5) fL Neut % (Auto) 62.9 (43.0-75.0) % Lymph % (Auto) 26.8 (20.5-60.0) % [place] % (Auto) 6.9 (1.7-12.0) % Eos % (Auto) 1.8 (0.9-7.0) % Baso % (Auto) 0.8 (0.2-2.0) % Neut # (Auto) 3.2 (1.4-6.5) 10^3/uL Lymph # (Auto) 1.4 (1.2-3.8) 10^3/uL [place] # (Auto) 0.4 (0.3-0.8) 10^3/uL Eos # (Auto) 0.1 (0.0-0.7) 10^3/uL Baso # (Auto) 0.0 (0.0-0.1) 10^3/uL Abs Immat Gran (auto) 0.04 H (0.00-0.03) 10^3/uL Imm/Tot Granulo (auto) 0.8 H (0.0-0.5) % Sodium 141 (136-145) mmol/L Potassium 3.7 (3.5-5.1) mmol/L Chloride 103 (98-107) mmol/L Carbon Dioxide 25.3 (21.0-32.0) mmol/L Anion Gap 16.4 BUN 8.0 (7.0-18.0) mg/dL Creatinine 0.67 (0.55-1.02) mg/dL Est GFR ( Amer) >60 (>=60 mL/min/1.73m^2) Est GFR (Non-Af Amer) >60 (>=60 mL/min/1.73m^2) BUN/Creatinine Ratio 11.9 Glucose 100 (74-106) mg/dL Calcium 9.1 (8.5-10.1) mg/dL Urine Color [place] A (YELLOW) Urine Clarity Clear (CLEAR) Urine pH 6.0 (5.0-9.0) Ur Specific [place] 1.010 (1.005-1.025) Urine Protein 30 A (NEG/TRACE) mg/dL Urine Glucose (UA) Negative (NEGATIVE) mg/dL Urine Ketones Negative (NEGATIVE) mg/dL Urine Occult Blood Large A (NEGATIVE) Urine Nitrite Negative (NEGATIVE) Urine Bilirubin Negative (NEGATIVE) Urine Urobilinogen 1.0 (0.2-1.0) EU/dL Ur Leukocyte Esterase Negative (NEGATIVE) Urine RBC >100 A (0-2) #/HPF Urine WBC 0-2 A (NONE SEEN) #/HPF Ur Squamous Epith Cells Rare (NONE/RARE) #/LPF Urine Crystals None seen (None Seen) #/HPF Urine Bacteria Small A (NONE SEEN) #/HPF Urine Casts None seen (NONE SEEN) #/LPF Urine Mucus None seen (NONE SEEN) Ur Culture Indicated? Yes-[facility] [place] Imaging Data CT scan - abdomen: Radiologist's impression: ITS Impressions Abdomen/Pelvis CT 02/23/25 16:12 IMPRESSION: Negative for nephrolithiasis or nonobstructive uropathy. No evidence acute inflammatory process or bowel obstruction. Impression dictated by: Lance Em M.D. 02/23/2025 5:20 PM Dictation Location: [email or web address] [facility]ITALSkilljar Electronically authenticated by: [id number] Y Date: 02/23/2025 17:20 Discharge Plan Discharge Chief Complaint: Abdominal Pain Clinical Impression: Left flank pain, Hematuria, Drug-seeking behavior Patient Disposition: Home, Self-Care Time of Disposition Decision: 17:43 Condition: Good Mode of Transportation: Private Vehicle Prescriptions / Home Meds: No Action lamotrigine 100 mg tablet 100 mg PO QDAY lorazepam 1 mg tablet 1 mg PO Q8H metoprolol succinate 50 mg tablet extended release 24 hr 50 mg PO Q12H omeprazole 40 mg capsule,delayed release(DR/EC) 40 mg PO .qhs oxycodone-acetaminophen 5-325 mg tablet 1 tab PO Q6H PRN (Reason: pain) ondansetron HCl 4 mg tablet 4 mg PO Q6H PRN (Reason: nausea and vomiting) Qty: 12 0RF ondansetron 4 mg tablet,disintegrating 4 mg PO Q6H PRN (Reason: nausea and vomiting) Qty: 20 0RF cephalexin 500 mg capsule 500 mg PO Q8H 7 Days Qty: 21 0RF oxycodone-acetaminophen [Percocet] 5-325 mg tablet 1 tab PO Q8H PRN (Reason: pain) 4 Days Qty: 12 0RF ciprofloxacin HCl [Cipro] 500 mg tablet 500 mg PO BID Qty: 10 0RF Print Language: Cambodian Instructions: Hematuria (ED), Flank Pain (ED) Referrals: Physician,Non-Staff, MD [Primary Care Provider] - 1 week
[2025-02-23 16:53] LABS: Bilirubin Urine NEGATIVE (NEGATIVE); Blood Urine LARGE (NEGATIVE); Clarity Urine CLEAR (CLEAR); Color Urine ORANGE (YELLOW); Glucose Urine UA NEGATIVE (NEGATIVE); Ketones Urine NEGATIVE (NEGATIVE); Leukocyte Esterase Urine NEGATIVE (NEGATIVE); Nitrite Urine NEGATIVE (NEGATIVE); Protein Urine 30 mg/dL (NEG/TRACE)
[2025-02-23 16:55] LABS: Basophils Percent Auto 0.8 % (0.2-2.0); Eosinophils Absolute Auto 0.1 10^3/uL (0.0-0.7); Eosinophils Percent Auto 1.8 % (0.9-7.0); Hematocrit 29.4 % (36.0-48.0); Hemoglobin 8.8 g/dL (12.0-16.0); Immature Granulocytes Abs Auto 0.04 10^3/uL (0.00-0.03); Immature Granulocytes Pct Auto 0.8 % (0.0-0.5); Lymphocytes Absolute Auto 1.4 10^3/uL (1.2-3.8); Lymphocytes Percent Auto 26.8 % (20.5-60.0); Mean Corpuscular HGB Conc 29.9 g/dL (29.9-35.2); Mean Corpuscular Hemoglobin 22.4 pg (26.7-34.0); Mean Platelet Volume 8.9 fL (9.5-13.5); Monocytes Absolute Auto 0.4 10^3/uL (0.3-0.8); Monocytes Percent Auto 6.9 % (1.7-12.0); Neutrophils Absolute Auto 3.2 10^3/uL (1.4-6.5); Neutrophils Percent Auto 62.9 % (43.0-75.0); Platelet Count 215 10^3/uL (150-450); Red Blood Count 3.92 10^6/uL (4.20-5.40); Red Cell Distribution Width 25.8 % (11.0-15.0); White Blood Count 5.1 10^3/uL (4.0-11.0)
[2025-02-23 17:04] LABS: Anion Gap 16.4; BUN Creatinine Ratio 11.9; Calcium 9.1 mg/dL (8.5-10.1); Carbon Dioxide 25.3 mmol/L (21.0-32.0); Chloride 103 mmol/L (98-107); Estimated GFR (African America >60 (>=60 mL/min/1.73m^2); Estimated GFR (Non-African Ame >60 (>=60 mL/min/1.73m^2); Glucose 100 mg/dL (74-106); Potassium 3.7 mmol/L (3.5-5.1); Sodium 141 mmol/L (136-145)
[2025-02-23 17:15] LABS: Bacteria Urine SMALL #/HPF (NONE SEEN); Cast Seen? NONE SEEN #/LPF (NONE SEEN); Crystals Seen? None Seen #/HPF (None Seen); Mucus Urine NONE SEEN (NONE SEEN); RBC Urine >100 #/HPF (0-2); Squamous Epithelial Cell Urine RARE #/LPF (NONE/RARE); Urine Culture Indicated YES-FRMC; WBC Urine 0-2 #/HPF (NONE SEEN)
== END 2025-02-23 18:07 | disposition home or self-care (01) ==
PROVIDERS: Emergency Provider Emergency Medicine
DX: R10.9 Unspecified abdominal pain (principal); R31.9 Hematuria, unspecified; Z76.5 Malingerer [conscious simulation]; Z87.442 Personal history of urinary calculi; Z87.891 Personal history of nicotine dependence
CPT/HCPCS: 36415; 74176; 80048; 81001; 85025; 87086; 87088; 87186; 99285